=== PATIENT | female | born 1945 | race African-American/Black ===

== ENCOUNTER 2016-09-27 14:47 | Inpatient (IN) | payer MEDICARE, OTHER ==
--- NOTE | ~2016-09-27 | EKG ---
PATIENT: BHAVYA PETE UNIT #: [id number] Ventricular Rate: 75 BPM Atrial Rate: 75 BPM P-R Interval: 198 ms QRS Duration: 64 ms Q-T Interval: 418 ms QTC Calculation(Bezet): 466 ms P [place]: 73 degrees Calculated R [place]: 26 degrees Calculated T [place]: 43 degrees Diagnosis Line: Normal sinus rhythm Diagnosis Line: Normal ECG Diagnosis Line: When compared with ECG of 03-JUL-2015 01:38, Diagnosis Line: Aberrant conduction is no longer Present Diagnosis Line: ST elevation now present in Anterior leads Diagnosis Line: Confirmed by BREANNE LINDQUIST MD ([id number]) on 09/28/2016 Diagnosis Line: 12:05:45 PM INTERPRETING MD: LEXA MINOR
--- NOTE | ~2016-09-27 | CO ---
Unit #: [id number] #: [id number] Patient: BHAVYA SONG [id number] [address] [address] [id number] I MR#: [id number] NAME: BHAVYA SONG ROOM: [facility] Age: 71 Sex: F Admission Date: 09/27/2016 : 1945 Attending Physician: Aurora Daniel M.D. Primary Care Physician: Calvin Deng Jr., M.D. Consultation Date: 09/28/2016 CONSULTATION REPORT REASON FOR CONSULT Acute kidney injury. HISTORY OF PRESENT ILLNESS Ms. Song is a 71-year-old confused -[place] female who was admitted from a skilled nursing for altered mental status. The patient does have a history of stroke and contractures and is on a lot of pain medicines at the skilled nursing as well as seizure medicines. It is not clear what her p.o. status was over the last few days before coming in but she clearly looked dehydrated on admission and her creatinine was elevated to 5.5 prompting our consultation. She has responded very well to IV fluids and has good urine output. She was hypotensive on admission which has improved. Her Losartan and Mobic, which she was on at the skilled nursing, have been discontinued. She is still lethargic and confused and not able to get any history from her. There have been no reports of hematuria or swelling, no reports of rashes. PAST MEDICAL HISTORY 1. History of stroke. 2. History of seizures. 3. History of urinary tract infections. 4. Coronary artery disease. 5. Hypertension. 6. History of small bowel obstruction. 7. Chronic pain syndrome. 8. Valvular heart disease with [id number]-du-xreaem mitral regurgitation. PAST SURGICAL HISTORY 1. Craniotomy. 2. Hysterectomy. MEDICATIONS Her skilled nursing meds were: 1. Morphine 30 mg twice a day. 2. Losartan 100 mg a day. 3. Ativan 1 mg twice a day. 4. Hydrocodone p.r.n. 5. Neurontin 100 mg twice a day. 6. Keppra 500 mg twice a day. 7. Amlodipine 5 mg a day. 8. Baby aspirin daily. 9. Mobic 15 mg a day. 10. MiraLax 17 g daily. 11. Senokot twice a day. Unit #: [id number] #: [id number] Patient: BHAVYA SONG 12. Coreg 12.5 mg twice a day. 13. Latanoprost eye drops. 14. Astepro two puffs daily. 15. Zofran p.r.n. 16. Ativan 0.5 mg every eight hours. 17. Biofreeze to right shoulder as needed. ALLERGIES She has no known drug allergies. FAMILY HISTORY Not known and the patient is not able to give any family history. SOCIAL HISTORY She is a skilled nursing resident and is wheelchair bound. There are no reports of tobacco, alcohol, or drug abuse. REVIEW OF SYSTEMS A complete 12-point review of systems was attempted but simply unable to be obtained secondary to the patient's confusion. She has not had any fevers or chills. Does not appear to be in any pain. Her respiratory status has improved. No hemoptysis. No reports of vomiting or diarrhea. No reports of itching. No gross hematuria. Unless otherwise indicated, review of systems was simply unable to be obtained. PHYSICAL EXAMINATION VITAL SIGNS: Temperature is afebrile. Pulse 109, respiratory rate 17, blood pressure 154/90 (improved from 91/77 on admission). I's and O's are even at this point. GENERAL: This is a 71-year-old -[place] female confused but arousable in no acute distress. HEENT: Head is atraumatic, normocephalic. Eyes show pink conjunctivae with no scleral icterus. No nasal drainage or nosebleed. Oropharynx is dry. NECK: Shows no rigidity, no JVD. HEART: Tachycardic and regular with murmur present. No rub appreciated. LUNGS: Show diminished breath sounds with shallow breaths. No wheezing or rhonchi. Breathing is nonlabored at rest. ABDOMEN: Soft, nontender, nondistended. Bowel sounds are present. EXTREMITIES: No lower extremity cyanosis or pitting edema. SKIN: Dry without rashes. GENITOURINARY: Fernández catheter is in place with nonbloody urine. MUSCULOSKELETAL: No joint effusions noted. She does have a contracture in the right upper extremity. LYMPHATIC: Shows no neck, cervical lymphadenopathy. PSYCHIATRIC: Noteworthy for confusion. DIAGNOSTIC STUDIES LABORATORY: Chemistry this morning: Sodium 135, potassium 4.3, chloride 105, bicarbonate 25, glucose 153, BUN 50, creatinine 2.7. Phosphorous high at 5.7. CK level this morning was 1200. CBC was noteworthy for hemoglobin of 10.9. TSH was normal. Lactic acid level was normal. Urinalysis was unremarkable as well, did have a few white blood cells with granular cast and a culture is pending. Admission creatinine was 5.5. Baseline creatinine prior to this was 0.8 on August 26, 2016. IMAGING: Kidney ultrasound done last night showed a right renal cyst, otherwise normal. Unit #: [id number] #: [id number] Patient: BHAVYA SONG CT scan showed chronic changes with encephalomalacia. Chest x-ray on admission showed no infiltrates. ASSESSMENT AND PLAN 1. Acute kidney injury: This looks to be all prerenal in nature as she is getting better with IV fluids and holding her Losartan and Mobic. We will continue fluids and monitor response. 2. Hypotension: Her blood pressure medications have been held and her blood pressure is doing better. We may need to actually restart her meds going forward if her blood pressure continues to escalate. 3. Chronic pain syndrome with osteoarthritis: No Mobic should be used in this patient with acute kidney injury. 4. Dehydration: On fluids. 5. Mental status changes, questionable baseline. 6. Elevated CPK level: We will continue IV fluids. I would like to thank Dr. Roper for this consult and the opportunity to participate in the evaluation and care of Ms. Song. Dictated by... Neri Dubon Jr., Victoriano. KAILA/hipolito TD: 09/28/2016 11:02 JOB #: [id number] CONSULTATION REPORT X Neri Dubon MD X CONSULTATION REPORT
--- NOTE | ~2016-09-27 | DS ---
Unit #: [id number] #: [id number] Patient: BHAVYA PETE [id number] [address] [address] [id number] I MR#: [id number] NAME: BHAVYA PETE ROOM: 568 Age: 71 Sex: F Admission Date: 09/27/2016 : 1945 Discharge Date: 10/03/2016 Attending Physician: Aurora Daniel M.D. Primary Care Physician: Calvin Deng Jr., M.D. DISCHARGE SUMMARY ADDENDUM Please see aforementioned discharge summary for details of hospital stay. During the time of discharge, the patient had one to two emesis episodes and was unable to tolerate p.o. complaining of some mild abdominal discomfort. Therefore, we had consulted Dr. Brown of gastroenterology services secondary to above. Therefore, he saw and evaluated patient. Patient underwent upper GI endoscopy which did reveal antral ulcer approximately 6 mm as well as gastritis. There was a hiatal hernia noted as well as an esophageal ring. PPI therapy daily dosing was recommended. Pepcid was subsequently discontinued. Nephrology services also reevaluated patient and her Cozaar/losartan was discontinued. Coreg was increased to 25 mg p.o. b.i.d. Hydralazine 10 mg p.o. b.i.d. was added to her overall regimen. Please see above for final discharge medications as well as discharge diagnosis. Please note the following changes: 1. Hydralazine 10 mg p.o. b.i.d. 2. Cozaar to be discontinued. 3. Coreg to be increased to 25 mg p.o. b.i.d. The remainder of her discharge medications are the same as stated above. Dictated by... Nuzhat Garcia/hipolito TD: 10/03/2016 13:12 JOB #: [id number] Unit #: [id number] #: [id number] Patient: BHAVYA PETE DISCHARGE SUMMARY Page 1 of 1 X Aurora Daniel MD X DISCHARGE SUMMARY
--- NOTE | ~2016-09-27 | HP ---
Unit #: [id number] #: [id number] Patient: BHAVYA SONG [id number] [id number] [facility]. [place], [place] [address] [id number] MR#: [id number] NAME: BHAVYA SONG ROOM: Age: 71 Sex: F Admission Date: 09/27/2016 : 1945 Attending Physician: Jerome Lopez M.D. Primary Care Physician: Calvin Deng Jr., M.D. HISTORY AND PHYSICAL CHIEF COMPLAINT Altered mental status. HISTORY OF PRESENT ILLNESS The patient is a 71-year-old female with past medical history of hypertension, cerebrovascular accident, coronary artery disease, seizure disorder, small bowel obstruction, chronic pain who presented to the emergency department from the skilled nursing for evaluation of the above. History is obtained from discussion with ER staff and chart review as well as from the patient's daughter, Rosalba Song, who was at the bedside. The patient is really unable to provide much history due to altered mental status. The patient's daughter states that she seemed somewhat confused last night. She was rather sleepy. This morning, she continued to be lethargic and was difficult to arouse. She was brought to the emergency department for further evaluation. In the emergency department, initial temperature was 99.1, pulse 85, respirations 18, blood pressure 91/77, oxygen saturation was 97% on room air. She was given 0.4 mg of naloxone IV. She was then somewhat more awake for about 30 minutes. Prior to that, a blood gas was done and showed pH 7.231, pCO2 of 62.3, pO2 of 66.8 on 4 L. She was placed on BiPAP. Following naloxone, she became more awake and removed the mask. She is currently on room air. She is opening eyes to voice and answering some yes/no questions. She is following commands. Laboratory is notable for BUN and creatinine of 46 and 5.5 respectively. Her renal function was previously normal. She is being admitted to [facility] for evaluation and further treatment. PAST MEDICAL HISTORY 1. Admission to [facility], July 03 through July 06, 2015, for status epilepticus and E. coli urinary tract infection. 2. 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 3. Coronary artery disease. 4. Hypertension. 5. Seizure disorder, maintained on Keppra. 6. Small bowel obstruction. 7. Chronic pain on narcotics. 8. Echocardiogram, November 22, 2013, was technically limited but showed an ejection fraction of 50% with mild concentric left ventricular hypertrophy, vcvuevkn-pk-quruwo mitral regurgitation, mild tricuspid regurgitation, mild aortic regurgitation. Unit #: [id number] #: [id number] Patient: BHAVYA SONG PAST SURGICAL HISTORY 1. Craniotomy. 2. Hysterectomy. SOCIAL HISTORY The patient is currently at a skilled nursing. She is in a wheelchair. There is no tobacco or alcohol use. CODE STATUS Her code status is a full code. ALLERGIES No known allergies. HOME MEDICATIONS 1. Amlodipine. 2. Losartan. 3. Aspirin. 4. Polyethylene glycol. 5. Hydrocodone. 6. Ativan. 7. Gabapentin. 8. Senna. 9. MS Contin. 10. Keppra. 11. Carvedilol. 12. Latanoprost. 13. Coreg. 14. Astelin. 15. Zofran. 16. Lorazepam. 17. Biofreeze. Home medications will need to be reviewed and verified. REVIEW OF SYSTEMS A complete review of systems is negative except as indicated in the HPI but somewhat limited due to the patient's altered mental status. She denies current chest pain. She is complaining of abdominal pain. She denies any vomiting or diarrhea within the past 24 hours. She does report decreased urine output. She is typically incontinent and wears a brief. DIAGNOSTIC STUDIES LABORATORY: Arterial blood gas shows pH of 7.231, pCO2 of 62.3, pO2 of 66.8 on 4 L. Troponin is less than 0.05. Comprehensive metabolic panel is notable for glucose of 131, BUN and creatinine 46 and 5.5 respectively. Lactic acid is 0.9. Urinalysis notable for trace leukocyte esterase, 5-10 white blood cells, negative for bacteria and nitrite. Complete blood count notable for hemoglobin and hematocrit of 11 and 35.3 respectively. IMAGING: Chest x-ray shows no acute abnormality. CT of the head is pending. CARDIOVASCULAR: EKG shows normal sinus rhythm with rate of 75 beats per minute. PHYSICAL EXAMINATION Unit #: [id number] #: [id number] Patient: BHAVYA SONG VITAL SIGNS: Temperature is 99.2, pulse 85, respirations 18, blood pressure 91/77, oxygen saturation is 97% on room air. GENERAL: The patient is an -[place] female who is somewhat lethargic but opens eyes to physical stimuli. HEENT: The head is atraumatic. Mucous membranes are moist. NECK: Supple. Trachea is midline. CARDIOVASCULAR: Regular rate and rhythm. LUNGS: Clear to auscultation bilaterally with no increased work of breathing. ABDOMEN: Soft, nontender with bowel sounds present in all four quadrants. EXTREMITIES: The right upper extremity is contracted. There is no pedal edema. NEUROLOGIC: The patient is oriented to person and place. She follows commands. PSYCHIATRIC: The patient is cooperative. SKIN: Skin of examined areas is warm and dry. ASSESSMENT The patient is a 71-year-old female: 1. Altered mental status: The patient has had some response to Narcan. 2. Acute respiratory failure, hypoxic and hypercapnic. 3. Acute kidney injury: The patient's creatinine was 0.8 on August 26, 2016. It is 5.5 today. She is on Losartan which could be contributing. She has had decreased appetite but the patient's daughter states that is not a new problem. 4. Hypertension: The patient's blood pressure has actually been running low in the emergency department at 91/77. 5. History of cerebrovascular accident with residual right-sided weakness. 6. Coronary artery disease. 7. History of seizures, maintained on Keppra. 8. History of small bowel obstruction. 9. Chronic pain, maintained on narcotics. PLAN 1. Admit to intermediate level. 2. NPO until more awake. 3. TSH, B12, and folate. 4. Neuro checks. 5. Check ABG now. 6. Consult Dr. Lind regarding acute respiratory failure. 7. DuoNeb q.4 hours p.r.n. 8. Urine sodium, creatinine, eosinophils. 9. Renal ultrasound. 10. Strict ins and outs. 11. Check CPK. 12. Normal saline at 75 mL an hour. 13. Consult Dr. Dubon regarding acute kidney injury. 14. Serial cardiac enzymes. 15. Followup results of head CT. 16. Sequential compression devices for deep venous thrombosis prophylaxis. 17. Protonix for gastrointestinal prophylaxis. 18. Repeat labs in the morning. 19. Additional workup and consultants based on above. Unit #: [id number] #: [id number] Patient: BHAVYA SONG Dictated by Nuzhat Cline/hipolito TD: 09/27/2016 16:54 JOB #: [id number] HISTORY AND PHYSICAL X Martina Roper MD X HISTORY AND PHYSICAL
--- NOTE | ~2016-09-27 | CO ---
Unit #: [id number] #: [id number] Patient: BHAVYA PETE [id number] [address] [address] [id number] I MR#: [id number] NAME: BHAVYA PETE ROOM: [facility] Age: 71 Sex: F Admission Date: 09/27/2016 : 1945 Attending Physician: Martina Roper M.D. Primary Care Physician: Calvin Deng Jr., M.D. CONSULTATION REPORT REASON FOR CONSULTATION Critical care management. CHIEF COMPLAINT Altered mental status. HISTORY 71-year-old female with a past medical history of hypertension, CVA, coronary artery disease, seizure disorder, small bowel obstruction, chronic pain, presents to the emergency room from the [facility] for evaluation of altered mental status and has been admitted for altered mental status, acute respiratory failure and acute renal failure. I am seeing the patient at bedside, able to tell her name, comfortable. O2 sats 99% on room air. Does not know where she is, does not look in any distress. PAST MEDICAL HISTORY Significant for: 1. UTI. 2. Stroke. 3. Coronary artery disease. 4. Hypertension. 5. Seizure disorder. 6. Small bowel obstruction. 7. Chronic pain, on [place]. 8. EF of 50%. 9. Craniotomy. 10. Hysterectomy. SOCIAL HISTORY Nonsmoker. No alcohol, no drug abuse. ALLERGIES No known drug allergies. MEDICATIONS 1. Amlodipine. 2. Losartan. 3. Aspirin. 4. Polyethylene glycol. 5. Hydrocodone. 6. Ativan. 7. Gabapentin. 8. Senna. Unit #: [id number] #: [id number] Patient: BHAVYA PETE 9. MS-Contin. 10. Keppra. 11. Carvedilol. 12. Latanoprost. 13. Coreg. 14. Astelin. 15. Zofran. 16. Lorazepam. 17. Biofreeze. PHYSICAL EXAMINATION VITAL SIGNS: Temperature 98, pulse 87, respirations 12, blood pressure 110/70. NEUROLOGICAL: Awake but does not follow much commands. Comfortable. Knows her name and tells her name but does not know where she is. CVS: S1+ S2. RESPIRATIONS: Bilateral air entry, bilateral mild rhonchi. GI: Nontender, soft. Bowel sounds positive. EXTREMITIES: No edema. Upper extremity contracted. DIAGNOSTIC STUDIES Labs and imaging have been reviewed. ASSESSMENT AND PLAN 1. Acute hypercapnic respiratory failure. 2. Altered mental status. 3. Acute renal failure. 4. Respiratory acidosis. 5. Dehydration. At this point, plan is to admit the patient. Continue oxygen, bronchodilator. The patient cannot tolerate BiPAP because of her history of stroke and continuous altered mental status. Will continue aggressive IV hydration. GI/DVT prophylaxis. Continue to monitor very closely. Will continue oxygen, bronchodilator. She may need intubation. Will watch very closely. Please see orders for detailed plan. Thank you very much for this consultation. We will continue to follow. Will start patient on empiric antibiotics as well. Total critical care time is 65 minutes in direct critical care of this patient. Dictated by... Nuzhat Henry/jesse TD: 09/28/2016 06:45 JOB #: [id number] Unit #: [id number] #: [id number] Patient: BHAVYA PETE VALORIE CONSULTATION REPORT X Farooq Lind MD X CONSULTATION REPORT
--- NOTE | ~2016-09-27 | CT71 ---
[facility] A Service of [facility] RADIOLOGY TEXT RESULTS PATIENT: BHAVYA PETE VALORIE LOCATION: [facility] 568-01 : [birth year] UNIT #: [id number] AGE: [address]: Aurora Daniel MD SEX: F ORDER DR: [id number] [facility] [address] [facility]. [place], [place] [address] [id number] I MR#: [id number] Acc #: [id number] NAME: BHAVYA PETE : 1945 SEX: F STUDY DATE/TIME: 09/27/2016 16:00 UNIT: [facility] ROOM: [facility] STUDY DESCRIPTION: CT Head Wo Contrast Attending Physician: Martina Roper M.D. Ordering Physician: Jerome Lopez M.D. Primary Care Physician: Calvin Deng Jr., M.D. MEDICAL IMAGING REPORT This report is preliminary unless electronic signature is present EXAM CT brain without contrast media HISTORY Confusion beginning this morning. TECHNIQUE Transaxial imaging of the brain was performed without contrast and compared directly to the patient's most recent examination of 07/03/2015. This CT examination was performed with one or more of the following radiation dose reduction techniques: automatic exposure control, adjustment of mA and/or kV according to patient size, and iterative reconstruction. FINDINGS There is motion degradation artifact. There is an area of encephalomalacia in the left frontoparietal region immediately deep to a prior craniotomy defect in the left frontoparietal region. The appearance has not changed. There is ipsilateral compensatory dilatation of the left lateral ventricle. The right lateral ventricle is normal. No mass lesions, mass effect, evidence of acute hemorrhage or edema. There is atherosclerotic disease in both vertebral arteries, the basilar artery and throughout the carotid siphons. CONCLUSION 1. Postsurgical changes left frontoparietal craniotomy. 2. Encephalomalacia in the left frontoparietal cortex and white matter, stable, with compensatory dilatation of the left lateral ventricle. 3. Advanced atherosclerotic disease. 4. No acute findings. [facility] A Service of [facility] RADIOLOGY TEXT RESULTS PATIENT: BHAVYA PETE LOCATION: [facility] 568-01 : [birth year] UNIT #: [id number] AGE: [address]: Aurora Daniel MD SEX: F ORDER DR: Dictated by... Antony Vasques M.D. THIS IS AN ELECTRONICALLY VERIFIED REPORT Antony Vasques M.D. at 10/01/2016 5:09 PM PAULA/winifred TD: 09/28/2016 06:03 JOB #: [id number] MEDICAL IMAGING REPORT Page 1 of 1 COPY
--- NOTE | ~2016-09-27 | A ---
[facility] Nutrition Therapy DATE: 09/28/16 Patient: BHAVYA PETE Physician: AIDA Address: [facility] Room/Bed: [address], Zip: [place] [address] Admit Date: 09/27/16 Date of : [birth year] Height: 5 4 Weight: 210 95.5 NUTRITIONAL ASSESSMENT: REASON: NPO status 71 yo female admitted for altered mental status, acute respiratory failure, JUVENAL PMH: CVA (R side weakness), HTN, CAD, seizure disorder, small bowel obstruction, JUVENAL, EF of 50% Anthropometrics: HT: 5'6" WT: 95.5 kg (210#) BMI: 34.0 Labs: Glu 153, BUN 50, Creat 2.7, Mg++ 3.5, Phos 5.7, GFR 22.5 Meds: Protonix IV, NaCl I/O & Bowel function: 706/700 Skin Integrity: excoriation (R buttock), scars (abd, knee), redness/bruise (L forearm) Estimated Nutrition Needs: 1430 - 1910 kcal (15-20 kcal/kg) 89 - 118 grams protein (1.5-2.0 g/kg IBW) Assessment: Chart reviewed, events noted. When admitted, pt had c/o abdominal pain. Per [employer], pt has no recent wt change. Per chart, pt eats a regular diet at the senior care she stays at. JUVENAL noted, pt has no history of chronic kidney disease. Please see recomendations below. Dx: Inadequate protein-energy intake RT current clinical condition AEB NPO status. Intervention: 1. Enteral nutrition if diet does not advance 2. CONTINUOUS IMPROVEMENT FACILITATOR Monitoring, Evaluation and Goals: 1. Nutrition; provide and consume ~80-100% of estimated needs 2. Labs; WNL: Gluc, BUN, Creat, Mg++, Phos 3. Weight; prevent unintentional weight loss 4. Skin; promote skin healing Recommendations: 1. Recommend CONTINUOUS IMPROVEMENT FACILITATOR evaluation to determine if pt can safely tolerate PO intake. 2. If advance to PO diet recommend heart healthy diet. 3. If pt unable to take nutrition PO, recommend initiating enteral nutrition with Jevity 1.5 @ 20 mL/hr + 30 mL Prostat BID. Increase by 10 mL q 8 hrs as tolerated to goal of 40 [facility] Nutrition Therapy DATE: 09/28/16 Patient: BHAVYA VALORIE PETE Physician: AIDA Address: [facility] Room/Bed: [address], Zip: [place] [address] Admit Date: 09/27/16 Date of : [birth year] Height: 5 4 Weight: 210 95.5 mL/hr + 30 mL Prostat BID. This will provide: 1640 kcal/91 grams protein/730 mL free H2O. 4. Consider GI consult if appropriate, pt admitted with abdominal pain. Pt is at moderate nutritional risk. RD will f/u per protocol. Respectfully, BOB SILVA, Md Allergy Immunology Adri Jacinto RD, LD Food and Nutritional Services [facility] cc: client file
--- NOTE | ~2016-09-27 | FU ---
[facility] Nutrition Therapy DATE: 10/02/16 Patient: BHAVYA PETE Physician: AIDA Address: NARENDRA [facility] Room/Bed: [address] [place] [address], Zip: [place] [address] Admit Date: 09/27/16 Date of : [birth year] Height: 5 4 Weight: 207 94 NUTRITION MONITORING/FOLLOW-UP: Reason: Nutrition follow-up 71 y/o female admitted for AMS, acute resp. failure, JUVENAL Anthropometrics: Ht: 5'6" Adm Wt: 95.5 kg BMI: 34 IBW: 59 kg Current wt: 94 kg Labs: K+ 3.4, Gluc 116, Mg++ 3.5, Phos 5.7, Lip 15 Meds: protonix, zofran I&O's: 595/1450, last BM 10/01 Skin: blisters (L wrist), contracture (R hand/wrist), no edema noted Estimated Nutrition Needs: 6424-3780 kcal (15-20 kcal/kg) 89-118 g protein (1.5-2 g/ kg IBW) Assessment: Chart reviewed, events noted. Pt is on a mechanical ground diet, which pt is not tolerating well. Pt's discharge cancelled d/t pt vomiting. EGD revealed hiatal hernia, gastric erosion, gastric ulcer and gastritis. GI recommended mechanical soft diet. Pt reports N/V and poor appetite. Pt consumed ~30-40% of lunch, per observation. Pt agreed to Ensure. Pt had no questions at this time. See recommendations below. Dx: Inadequate protein-energy intake RT current clinical condition AEB N/V, consumption of 30-40% of meal. -ACTIVE Intervention: 1. Ensure BID Monitoring, Evaluation and Goals: 1. PO intake; consume and tolerate >50% of meals and supplements 2. Labs; WNL: gluc, electrolytes 3. GI; promote regular GI function 4. Weight; prevent unintentional weight loss Recommendations: 1. Ensure BID with meals 2. Once medically feasible, advance diet to healthy heart as tolerated. [facility] Nutrition Therapy DATE: 10/02/16 Patient: BHAVYA PETE Physician: AIDA Address: N[facility]ENDRA [facility] Room/Bed: [address] [place] [address], Zip: [place] [address] Admit Date: 09/27/16 Date of : [birth year] Height: 5 4 Weight: 207 94 3. If pt continues with n/v, may consider low fiber diet. Status: Pt is at a mild-moderate nutrition risk RD will f/u per protocol. Respectfully, Randa León, Spud Sorter Adri Jacinto RD, LD Food and Nutritional Services [facility] cc: client file
--- NOTE | ~2016-09-27 | OR ---
Unit #: [id number] #: [id number] Patient: BHAVYA PETE [id number] [address] [address] [id number] I MR#: [id number] NAME: BHAVYA PETE ROOM: 568 Date of Procedure: 10/02/2016 Admission Date: 09/27/2016 Surgeon: Randal Brown M.D. : 1945 Attending Physician: Aurora Daniel M.D. Primary Care Physician: Calvin Deng Jr., M.D. OPERATIVE REPORT INDICATIONS FOR PROCEDURE Esophagogastroduodenoscopy with biopsies. INDICATIONS FOR PROCEDURE The patient with persistent nausea, vomiting, atypical chest pain. MEDICATIONS Monitored anesthesia. POSTOPERATIVE FINDINGS 1. Multiple mucosa, esophageal rings nonobstructing. 2. Hiatal hernia. 3. Diffuse gastritis. 4. 6 mm ulcer in the gastric antrum clean based. Biopsy was taken in an antral and body mucosa. 5. Normal duodenum and distal duodenum. PLAN PPI therapy. Diet discussed. Treat for H pylori if positive. DESCRIPTION OF PROCEDURE The patient was explained of the procedure, risks, and benefits along with risks and benefits of anesthesia. She was brought to the endoscopy room. Propofol anesthesia was given. Bite block was placed. The scope was passed down the mouth into the esophagus, stomach, duodenum, and distal duodenum. Findings as described. Biopsies taken. Gently, I pulled the scope out of the patient's mouth. She tolerated it well. Dictated by... Nuzhat Guardado/dakotah TD: 10/02/2016 22:18 JOB #: [id number] Unit #: [id number] #: [id number] Patient: BHAVYA PETE OPERATIVE REPORT Page 1 of 1 X Randal Brown MD X PROCEDURE OPERATIVE NOTE
--- NOTE | ~2016-09-27 | CR72 ---
[facility] A Service of [facility] & [facility] RADIOLOGY TEXT RESULTS PATIENT: BHAVYA PETE LOCATION: [address]16 : [birth year] UNIT #: [id number] AGE: [address]: Aurora Daniel MD SEX: F ORDER DR: [id number] [facility] [address] [place], [place] [address] [id number] MR#: [id number] Acc #: [id number] NAME: BHAVYA PETE : 1945 SEX: F STUDY DATE/TIME: 09/27/2016 13:40 UNIT: JEAN ROOM: STUDY DESCRIPTION: CR Chest Single View Portable Attending Physician: Jerome Lopez M.D. Ordering Physician: Jerome Lopez M.D. Primary Care Physician: Calvin Deng Jr., M.D. MEDICAL IMAGING REPORT This report is preliminary unless electronic signature is present EXAM Portable chest 1 view 09/27/2016 COMPARISON 04/03/2015 HISTORY Short of air today. FINDINGS Redemonstrated low lung volumes and borderline to mild cardiomegaly. No consolidation or effusion or pneumothorax. Dictated by... Marco Frazier M.D. THIS IS AN ELECTRONICALLY VERIFIED REPORT Marco Frazier M.D. at 09/28/2016 4:12 PM TEV/marvinr TD: 09/27/2016 19:19 JOB #: [id number] MEDICAL IMAGING REPORT COPY
--- NOTE | ~2016-09-27 | CO ---
Unit #: [id number] #: [id number] Patient: BHAVYA SONG [id number] [address] [place], [place] [address] [id number] I MR#: [id number] NAME: BHAVYA SONG ROOM: 568 Age: 71 Sex: F Admission Date: 09/27/2016 : 1945 Attending Physician: Aurora Daniel M.D. Primary Care Physician: Calvin Deng Jr., M.D. Consultation Date: 10/01/2016 CONSULTATION REPORT REASON FOR CONSULTATION Persistent nausea and vomiting. HISTORY OF PRESENTING ILLNESS Ms. Song is a 71-year-old female, she was transferred from long term for altered mental status, which appears to be secondary to medications. She has been having vomiting after the eating for last several days. Per daughter, she has been moved out of the long term for several months. She also has been complaining of atypical lower sternal pain, which is worse after food. The patient denies any hematemesis or melena. Denies any abdominal pain. Denies any change in bowel movements. PAST MEDICAL HISTORY Significant for history of seizure disorder, cerebrovascular accident, coronary artery disease, hypertension. She also has history of small bowel obstruction. SOCIAL HISTORY half-way resident. Nonsmoker. Nonalcoholic. ALLERGIES None. MEDICATIONS Included amlodipine, aspirin, hydrocodone, Ativan, gabapentin, Senna, MS Contin, Carvedilol, and lorazepam. REVIEW OF SYSTEMS Complete review of systems obtained and is negative other than as mentioned above. PHYSICAL EXAMINATION VITAL SIGNS: Stable. Afebrile. CHEST: Clear to auscultation bilaterally. CARDIOVASCULAR: Regular rate and rhythm. No murmurs. ABDOMEN: Soft, nontender, and nondistended. EXTREMITIES: Without clubbing, cyanosis, or edema. NEUROLOGIC: Grossly intact. Exam was deferred. She has contractures in the right side. DIAGNOSTIC STUDIES LABORATORY RESULTS: Chemistries show normal BUN, normal creatinine, now she came with a high BUN of 50. Creatinine on arrival was 2.7 also and Unit #: [id number] #: [id number] Patient: BHAVYA SONG has come down to 0.7. LFTs are normal. Amylase and lipase were reported normal. CBC with a hemoglobin of 11.4, white count of 12.2, and platelet count 325. IMAGING STUDIES: CT of head was done on arrival did show postsurgical changes from frontoparietal craniotomy and encephalomalacia. No acute changes were seen. ASSESSMENT AND PLAN The patient with recurrent nausea and vomiting, as well as atypical chest pain, possible esophagitis could be infectious versus acid reflux related ulceration and peptic ulcer disease also, possibly we will continue with current medication. Plan on doing an upper endoscopy for further evaluation. Speech evaluation was noted, apparently no defect. Thank you, Dr. Daniel for this interesting consult. We will follow along. Dictated by... Nuzhat Guardado/dakotah TD: 10/01/2016 23:36 JOB #: [id number] CONSULTATION REPORT Page 1 of 1 X Randal Brown MD X CONSULTATION REPORT
--- NOTE | ~2016-09-27 | CR72 ---
[facility] A Service of [facility] & [facility] RADIOLOGY TEXT RESULTS PATIENT: BHAVYA PETE LOCATION: [facility] 568-01 : [birth year] UNIT #: [id number] AGE: [address]: Aurora Daniel MD SEX: F ORDER DR: [id number] [facility] [address] [place], [place] [address] [id number] I MR#: [id number] Acc #: [id number] NAME: BHAVYA PETE : 1945 SEX: F STUDY DATE/TIME: 09/29/2016 3:40 UNIT: [facility] ROOM: [facility] STUDY DESCRIPTION: CR Chest Single View Portable Attending Physician: Aurora Daniel M.D. Ordering Physician: Aurora Daniel M.D. Primary Care Physician: Calvin Deng Jr., M.D. MEDICAL IMAGING REPORT This report is preliminary unless electronic signature is present EXAM AP portable chest 09/29/2016. HISTORY 71-year-old female with respiratory failure, shortness of air. Acute mental status changes. TECHNIQUE AP portable chest x-ray. FINDINGS Examination shows no change since yesterday. Mild cardiomegaly stable. Prominent and tortuous thoracic aorta. The lungs appear clear. No visible pulmonary infiltrate or pleural effusion. IMPRESSION Stable portable chest radiograph, unchanged since yesterday. Dictated by... Ankur Campos M.D. THIS IS AN ELECTRONICALLY VERIFIED REPORT Ankur Campos M.D. at 09/30/2016 5:30 AM RONALD/margaret TD: 09/30/2016 02:36 JOB #: [id number] MEDICAL IMAGING REPORT COPY
--- NOTE | ~2016-09-27 | CR72 ---
[facility] A Service of [facility] & [facility] RADIOLOGY TEXT RESULTS PATIENT: BHAVYA PETE LOCATION: [facility] 568[facility] : [birth year] UNIT #: [id number] AGE: [address]: Aurora Daniel MD SEX: F ORDER DR: [id number] [facility] [address] [place], [place] [address] [id number] I MR#: [id number] Acc #: [id number] NAME: BHAVYA PETE : 1945 SEX: F STUDY DATE/TIME: 09/28/2016 5:23 UNIT: [facility] ROOM: [facility] STUDY DESCRIPTION: CR Chest Single View Portable Attending Physician: Aurora Daniel M.D. Ordering Physician: Martina Roper M.D. Primary Care Physician: Calvin Deng Jr., M.D. MEDICAL IMAGING REPORT This report is preliminary unless electronic signature is present EXAM AP portable chest, 09/28/2016 at 05:23. HISTORY Acute mental status changes, respiratory failure. Short of breath for 2 days. COMPARISON STUDIES AP portable chest, 09/27/2016. FINDINGS Low volume inspiration. No acute airspace disease. Stable mild cardiac enlargement. Stable thoracic ectasia. IMPRESSION Stable cardiomegaly and thoracic aortic ectasia. No acute chest findings or significant change, compared to 09/27/2016. Dictated by... Rupal Bolanos M.D. THIS IS AN ELECTRONICALLY VERIFIED REPORT Rupla Bolanos M.D. at 10/02/2016 8:38 AM STACI/teo TD: 09/28/2016 11:06 JOB #: [id number] MEDICAL IMAGING REPORT Page 1 of 1 COPY
--- NOTE | ~2016-09-27 | DS ---
Unit #: [id number] #: [id number] Patient: BHAVYA EPTE [id number] [address] [place], [place] [address] [id number] I MR#: [id number] NAME: BHAVYA PETE ROOM: 568 Age: 71 Sex: F Admission Date: 09/27/2016 : 1945 Discharge Date: 10/01/2016 Attending Physician: Aurora Daniel M.D. Primary Care Physician: Calvin Deng Jr., M.D. DISCHARGE SUMMARY REASON FOR ADMISSION Altered mental status. HISTORY OF PRESENT ILLNESS/HOSPITAL COURSE The patient is a 71-year-old female with underlying history of hypertension, CVA, coronary artery disease, seizure disorder, small bowel obstruction, chronic pain syndrome who presented secondary to mental status change. Apparently, she has been living in a custodial for approximately 12 months. When she was seen and evaluated, she was quite somnolent. History was not able to be elicited after discussion with her. Therefore, discussion was made with the patient's daughter. She had initial arterial blood gases which showed a pH of 7.231, pCO2 of 62, pO2 of 66 on 4 L. She was subsequently placed on BiPAP, transitioned into the ICU. She received Narcan x1. She became more alert and was able to respond to some yes or no questions. During her ICU course, she was gradually weaned off BiPAP, placed on O2 via nasal cannula, returned back to baseline. Dr. Lind of pulmonary services was subsequently consulted for the same. From a respiratory standpoint, she was placed on Zosyn prophylactically for consideration of possible aspiration pneumonia. Her blood cultures did not show any acute bacterial growth during the time that she was here, neither did her urine culture. Today, her white count is decreased to 12.2. She appears stable from a respiratory standpoint for discharge. Initially while she was evaluated as well, it was noted that her creatinine was 5.5 with a GFR of 9.9. She received copious IV fluids through her hospital course. Her NSAIDs were also discontinued. Today at time of discharge, her creatinine now stands at 0.7. She did have elevated CK level with consideration for acute rhabdomyolysis. Today at time of discharge, her CK currently stands at 662 and has been trending downwards for the past three days. We did consult [facility]. Dr. Dubon saw and evaluated the patient during the time that she was here. We have held her morphine throughout her hospital course. She has exhibited no evidence of any withdrawal signs. She has not requested a significant amount of pain medications during the time that she was here. In fact, we transitioned her Deweese from q.4 to q.8 p.r.n. She only Unit #: [id number] #: [id number] Patient: BHAVYA PETE requested on a few occasions. Therefore, at time of discharge, her morphine will be discontinued altogether as this seems likely an etiology for her mental status change as well as respiratory compromise. Her Deweese 5/325 will be left at one tablet p.o. q.8 p.r.n. only. Her Ativan was also decreased to 0.5 p.o. q.8 p.r.n. She requested this only a few occasions. Her 1 mg p.o. b.i.d. was discontinued altogether. She was also initiated on Cymbalta as well as Remeron. Daughter states that she has had an overall decreased appetite over the past several days to weeks and in fact, has had decreased p.o. intake altogether over the past one year. The patient should have a repeat BMP in approximately three to five days post discharge while at the custodial. FINAL DISCHARGE DIAGNOSES 1. Acute hypoxic respiratory failure, likely secondary to narcotic/opioid medications. 2. Prior history of seizure disorder. 3. 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 4. Acute kidney injury, now resolved. 5. Coronary artery disease. 6. Hypertension. 7. Chronic pain syndrome. 8. Generalized anxiety disorder. 9. Polypharmacy on admission. 10. Acute rhabdomyolysis, now resolving. FINAL DISCHARGE MEDICATIONS 1. Keppra 500 mg p.o. b.i.d. 2. Cymbalta 30 mg p.o. daily. 3. Remeron 15 mg p.o. nightly. 4. Zofran 8 mg p.o. q.8 p.r.n. 5. Ativan 0.5 mg p.o. q.8 p.r.n. 6. Coreg 12.5 mg p.o. b.i.d. 7. Norvasc 5 mg p.o. b.i.d. 8. Xalatan eye drops at bedtime. 9. Cozaar 100 mg p.o. daily. 10. Pepcid 20 mg p.o. b.i.d. 11. Aspirin 81 mg p.o. daily. 12. Deweese 5/325 one tablet p.o. q.8 p.r.n. 13. Augmentin 875 mg p.o. b.i.d. x7 days. 14. Vitamin B12 at 1000 mcg IM q. week. DIAGNOSTIC STUDIES LABORATORY: Discharge laboratory studies include the following: Hemoglobin 11.4, white count 12.2, creatinine 0.7. CK level 662. TSH within normal range. Urine culture negative. Blood culture negative. Vitamin B12 level 181. DISCHARGE DISPOSITION To custodial. Dictated by... Aurora Daniel M.D. Unit #: [id number] #: [id number] Patient: BHAVYA PETE VALORIE LYNCH/hipolito TD: 10/01/2016 09:59 JOB #: [id number] DISCHARGE SUMMARY X Aurora Daniel MD X DISCHARGE SUMMARY
--- NOTE | ~2016-09-27 | US77 ---
[facility] A Service of [facility] & [facility] RADIOLOGY TEXT RESULTS PATIENT: BHAVYA PETE LOCATION: [facility] 568-01 : [birth year] UNIT #: [id number] AGE: [address]: Aurora Daniel MD SEX: F ORDER DR: [id number] [facility] [address] [place], [place] [address] [id number] MR#: [id number] Acc #: [id number] NAME: BHAVYA PETE : 1945 SEX: F STUDY DATE/TIME: 09/27/2016 17:49 UNIT: [facility] ROOM: [facility] STUDY DESCRIPTION: US Kidney Bilateral Complete Attending Physician: Martina Roper M.D. Ordering Physician: Jerome Lopez M.D. Primary Care Physician: Calvin Deng Jr., M.D. MEDICAL IMAGING REPORT This report is preliminary unless electronic signature is present EXAM Renal ultrasound HISTORY Flank pain for 1 year. Renal failure. FINDINGS Longitudinal and transverse sonograms of the kidneys are obtained. The right kidney measures 10.5 cm with a simple cyst in the upper pole measuring up to 3.8 cm in diameter. The left kidney measures 10.2 cm in length and appears normal. The bladder is unremarkable. CONCLUSION 1. Normal renal size and echogenicity. 2. No evidence of hydronephrosis or obstruction. 3. 3.8 cm right renal cyst. Dictated by... Antony Vasques M.D. THIS IS AN ELECTRONICALLY VERIFIED REPORT Antony Vasques M.D. at 10/01/2016 5:10 PM PAULA/winifred TD: 09/28/2016 08:01 JOB #: [id number] MEDICAL IMAGING REPORT Page 1 of 1 COPY
[2016-09-27 13:31] LABS: ARTERIAL BLD GAS O2 SATURATION 87.8 % (90.0-100.0); ARTERIAL BLOOD GAS ALLEN TEST NORMAL; ARTERIAL BLOOD GAS ART SITE LEFT RADIAL; ARTERIAL BLOOD GAS CARBOXY HB 0.7 %sat (0.0-9.0); ARTERIAL BLOOD GAS HCO3 26.1 mmol/L; ARTERIAL BLOOD GAS MET HB 0.8 %sat (0.0-2.0); ARTERIAL BLOOD GAS PCO2 62.3 mmHg (35.0-45.0); ARTERIAL BLOOD GAS PO2 66.8 mmHg (80.0-100); ARTERIAL BLOOD GAS pH 7.231 (7.350-7.450); ARTERIAL DRAW? YES
[2016-09-27 13:32] LABS: ARTERIAL BLOOD GAS DELIVERY NASAL CANNULA
[2016-09-27 14:29] LABS: URINE SOURCE CLEAN CATCH
[2016-09-27 14:39] LABS: POC - CKMB 4.2 ng/mL (0.0-7.9); POC - TROPONIN <0.05 ng/mL (<=0.05)
[2016-09-27 14:47] LABS: URINE APPEARANCE CLOUDY; URINE BLOOD NEG (NEG); URINE COLOR DK YELLOW; URINE GLUCOSE NEG (NEG); URINE KETONE TRACE (NEG); URINE LEUKOCYTE ESTERASE TRACE (NEG); URINE NITRATE NEG (NEG); URINE PROTEIN NEG (NEG); URINE SPECIFIC GRAVITY 1.031 (1.003-1.035); URINE UROBILINOGEN 0.2 MG/DL (NEG)
[~2016-09-27 14:47] MED LIST: AMLODIPINE BESYL5 MG PO; ARTHRITIS PAIN650 M2 PO; BACLOFEN10 MG PO; COREG12.5 MG PO; HYDROCODON-ACE1 EAC7 PO; KEPPRA250 MG PO; LORAZEPAM1 MG PO; LOSARTAN POTAS100 MG PO; MOBIC15 MG PO; MORPHINE SULFAT30 M3 PO; NEURONTIN100 MG PO; PRILOSEC40 MG PO; REMERON15 MG PO; SERTRALINE HCL100 MG PO
[2016-09-27 14:51] LABS: CULTURE INDICATED? YES; URINE BACTERIA AUWI NEG (NEGATIVE); URINE SQUAMOUS EPITHELIAL CELL FEW /[HPF]
[2016-09-27 14:55] LABS: ALBUMIN SERUM 3.9 g/dL (3.5-5.0); BILIRUBIN, DIRECT 0.1 mg/dL (0.0-0.2); BILIRUBIN,INDIRECT 0.4 mg/dL (0.0-0.9); BILIRUBIN,TOTAL 0.5 mg/dL (0.2-2.0); BUN/CREATININE RATIO 8.36; CALCIUM SERUM 8.5 mg/dL (8.4-10.2); CREATININE SERUM 5.5 mg/dL (0.6-1.4); GLOM FILT RATE Estimated 9.9 mL/min (>60); POTASSIUM 5.1 mmol/L (3.5-5.1); PROTEIN TOTAL SERUM 7.2 g/dL (6.0-8.3)
[2016-09-27 14:58] LABS: BASOPHIL# 0.1 X10e3 (0-0.3); BASOPHIL% 0.6 % (0-2.5); EOSINOPHIL# 0.2 X10e3 (0-0.7); EOSINOPHIL% 1.9 % (0.0-7.0); HEMATOCRIT 35.3 % (35.0-45.0); LYMPHOCYTE# 1.9 X10e3 (1.0-3.5); LYMPHOCYTE% 19.2 % (17.0-45.0); MEAN CELL VOLUME 83.6 FL (83-96); MEAN PLATELET VOLUME 8.5 FL (6.5-11.5); MONOCYTE# 0.6 X10e3 (0-1.0); MONOCYTE% 5.8 % (3.0-12.0); NEUTROPHIL# 7.3 X10e3 (1.5-7.1); NEUTROPHIL% 72.5 % (40-75); PLATELET COUNT 328 X10e3 (140-420); RED BLOOD COUNT 4.22 X10e (3.90-5.30); RED CELL DISTRIBUTION WIDTH 14.8 % (11.0-15.5)
[2016-09-27 15:00] LABS: URINE BILIRUBIN NEG (NEG)
[2016-09-27 15:01] LABS: DIFF IND YES
[2016-09-27 15:12] LABS: U HYALINE CASTS AUWI 0-2 /[LPF]; URINE CRYSTALS CALCIUM OXALATE /[HPF]; URINE GRANULAR CAST 0-2 /[HPF]
[2016-09-27 15:28] LABS: URBCS1 AUWI 0-2 /[HPF] (0-2)
[2016-09-27 15:32] LABS: PLATELET ESTIMATE NORMAL (NORMAL); RBC NORMAL YES
[2016-09-27 17:20] LABS: ARTERIAL BLD GAS O2 SATURATION 83.8 % (90.0-100.0); ARTERIAL BLOOD GAS ALLEN TEST NORMAL; ARTERIAL BLOOD GAS CARBOXY HB 0.6 %sat (0.0-9.0); ARTERIAL BLOOD GAS HCO3 25.3 mmol/L; ARTERIAL BLOOD GAS MET HB 0.8 %sat (0.0-2.0); ARTERIAL BLOOD GAS PCO2 54.6 mmHg (35.0-45.0); ARTERIAL BLOOD GAS PO2 55.5 mmHg (80.0-100); ARTERIAL BLOOD GAS pH 7.275 (7.350-7.450); ARTERIAL DRAW? YES
[2016-09-27 17:21] LABS: ARTERIAL BLOOD GAS ART SITE LEFT RADIAL
[2016-09-27 18:37] LABS: MAGNESIUM 3.5 mg/dL (1.6-3.0)
[2016-09-27 18:38] LABS: PHOSPHOROUS 9.5 mg/dL (2.5-4.6)
[2016-09-27 19:02] LABS: FOLATE (FOLIC ACID) 14.1 ng/mL (>5.8)
[2016-09-27 21:05] LABS: ARTERIAL BLD GAS O2 SATURATION 87.4 % (90.0-100.0); ARTERIAL BLOOD GAS CARBOXY HB 0.7 %sat (0.0-9.0); ARTERIAL BLOOD GAS HCO3 25.5 mmol/L; ARTERIAL BLOOD GAS MET HB 0.8 %sat (0.0-2.0); ARTERIAL BLOOD GAS pH 7.292 (7.350-7.450)
[2016-09-27 21:06] LABS: ARTERIAL BLOOD GAS ALLEN TEST NORMAL; ARTERIAL BLOOD GAS ART SITE LEFT RADIAL; ARTERIAL BLOOD GAS PCO2 52.8 mmHg (35.0-45.0); ARTERIAL DRAW? YES
[2016-09-27 21:11] LABS: %MB 0.8 % (0.0-4.0)
[2016-09-28 02:28] LABS: BASOPHIL# 0.1 X10e3 (0-0.3); BASOPHIL% 0.8 % (0-2.5); EOSINOPHIL# 0.2 X10e3 (0-0.7); HEMATOCRIT 35.3 % (35.0-45.0); HEMOGLOBIN 10.9 gm/dL (12.0-16.0); LYMPHOCYTE# 1.9 X10e3 (1.0-3.5); LYMPHOCYTE% 18.5 % (17.0-45.0); MEAN CELL VOLUME 83.4 FL (83-96); MEAN CORPUSCULAR HEMOGLOBIN 25.7 PG (28-34); MEAN CORPUSCULAR HGB CONC 30.8 g/dL (30-36); MEAN PLATELET VOLUME 8.2 FL (6.5-11.5); MONOCYTE# 0.7 X10e3 (0-1.0); MONOCYTE% 6.9 % (3.0-12.0); NEUTROPHIL# 7.4 X10e3 (1.5-7.1); NEUTROPHIL% 71.8 % (40-75); PLATELET COUNT 315 X10e3 (140-420); RED BLOOD COUNT 4.23 X10e (3.90-5.30); RED CELL DISTRIBUTION WIDTH 14.4 % (11.0-15.5); WHITE BLOOD COUNT 10.3 X10e3 (4.0-10.5)
[2016-09-28 02:29] LABS: DIFF IND NO
[2016-09-28 03:04] LABS: %MB 0.9 % (0.0-4.0); MB 10.3 ng/ml
[2016-09-28 03:07] LABS: ALBUMIN SERUM 3.9 g/dL (3.5-5.0); BILIRUBIN,TOTAL 0.7 mg/dL (0.2-2.0); BUN/CREATININE RATIO 18.51; CALCIUM SERUM 8.4 mg/dL (8.4-10.2); GLOM FILT RATE Estimated 22.5 mL/min (>60); PHOSPHOROUS 5.7 mg/dL (2.5-4.6); POTASSIUM 4.3 mmol/L (3.5-5.1); PROTEIN TOTAL SERUM 6.9 g/dL (6.0-8.3)
[2016-09-28 03:08] LABS: CREATININE SERUM 2.7 mg/dL (0.6-1.4)
[2016-09-28 06:06] LABS: ARTERIAL BLD GAS O2 SATURATION 98.4 % (90.0-100.0); ARTERIAL BLOOD GAS CARBOXY HB 0.3 %sat (0.0-9.0); ARTERIAL BLOOD GAS HCO3 25.1 mmol/L; ARTERIAL BLOOD GAS MET HB 0.8 %sat (0.0-2.0); ARTERIAL BLOOD GAS PCO2 46.2 mmHg (35.0-45.0); ARTERIAL BLOOD GAS pH 7.343 (7.350-7.450)
[2016-09-28 06:11] LABS: ARTERIAL BLOOD GAS ALLEN TEST NORMAL; ARTERIAL BLOOD GAS ART SITE LEFT RADIAL; ARTERIAL BLOOD GAS DELIVERY VENTURI MASK; ARTERIAL DRAW? YES
[2016-09-28] MEDS ORDERED: ASPIRIN81 MG PO (09:01)
[2016-09-28] MEDS ORDERED: MOBIC15 MG PO (09:02)
[2016-09-28] MEDS ORDERED: MIRALAX17 G2 PO (09:03)
[2016-09-28] MEDS ORDERED: SENNA8.6 M1 PO (09:06)
[2016-09-28] MEDS ORDERED: COREG12.5 M1 PO (09:08)
[2016-09-28] MEDS ORDERED: LATANOPROST2.5 ML OU (09:10)
[2016-09-28] MEDS ORDERED: ASTEPRO205.5 MCG/ (09:11)
[2016-09-28] MEDS ORDERED: ZOFRAN8 MG PO (09:13)
[2016-09-28] MEDS ORDERED: ATIVAN0.5 M1 PO (09:15)
[2016-09-28] MEDS ORDERED: BIOFREEZE118 ML TOP (09:15)
[2016-09-29 03:59] LABS: ARTERIAL BLD GAS O2 SATURATION 94.5 % (90.0-100.0); ARTERIAL BLOOD GAS CARBOXY HB 0.5 %sat (0.0-9.0); ARTERIAL BLOOD GAS HCO3 28.4 mmol/L; ARTERIAL BLOOD GAS MET HB 0.7 %sat (0.0-2.0); ARTERIAL BLOOD GAS PCO2 43.7 mmHg (35.0-45.0); ARTERIAL BLOOD GAS pH 7.421 (7.350-7.450)
[2016-09-29 04:04] LABS: ARTERIAL BLOOD GAS ALLEN TEST NORMAL; ARTERIAL BLOOD GAS ART SITE LEFT RADIAL; ARTERIAL BLOOD GAS PO2 71.7 mmHg (80.0-100); ARTERIAL DRAW? YES
[2016-09-29 06:14] LABS: BASOPHIL% 0.5 % (0-2.5); EOSINOPHIL# 0.1 X10e3 (0-0.7); EOSINOPHIL% 1.5 % (0.0-7.0); HEMATOCRIT 34.5 % (35.0-45.0); HEMOGLOBIN 10.6 gm/dL (12.0-16.0); LYMPHOCYTE# 1.6 X10e3 (1.0-3.5); LYMPHOCYTE% 21.3 % (17.0-45.0); MEAN CELL VOLUME 83.4 FL (83-96); MEAN CORPUSCULAR HEMOGLOBIN 25.7 PG (28-34); MEAN CORPUSCULAR HGB CONC 30.9 g/dL (30-36); MEAN PLATELET VOLUME 9.1 FL (6.5-11.5); MONOCYTE# 0.4 X10e3 (0-1.0); MONOCYTE% 5.8 % (3.0-12.0); NEUTROPHIL# 5.4 X10e3 (1.5-7.1); NEUTROPHIL% 70.9 % (40-75); PLATELET COUNT 281 X10e3 (140-420); RED BLOOD COUNT 4.13 X10e (3.90-5.30); RED CELL DISTRIBUTION WIDTH 14.5 % (11.0-15.5); WHITE BLOOD COUNT 7.7 X10e3 (4.0-10.5)
[2016-09-29 06:15] LABS: DIFF IND NO
[2016-09-29 06:51] LABS: THYROID STIMULATING HORMONE 0.72 uIU/ml (0.34-5.60)
[2016-09-29 06:53] LABS: ALBUMIN SERUM 3.1 g/dL (3.5-5.0); ALKALINE PHOSPHATASE 45 U/L (32-92); ALT (SGPT) 16 U/L (10-40); AST (SGOT) 28 U/L (10-42); BILIRUBIN,TOTAL 0.7 mg/dL (0.2-2.0); BLOOD UREA NITROGEN 19 mg/dL (9-23); BUN/CREATININE RATIO 27.14; CALCIUM SERUM 8.7 mg/dL (8.4-10.2); CARBON DIOXIDE 27 mmol/L (22-31); CHLORIDE 113 mmol/L (100-111); CPK (CREATINE PHOSPHOKINASE) 970 IU/L (26-140); CREATININE SERUM 0.7 mg/dL (0.6-1.4); GLOM FILT RATE Estimated ABOVE60 mL/min (>60); GLUCOSE FASTING 88 mg/dL (70-110); POTASSIUM 4.5 mmol/L (3.5-5.1); PROTEIN TOTAL SERUM 6.2 g/dL (6.0-8.3); SODIUM 147 mmol/L (135-145)
[2016-09-29 06:58] LABS: FREE THYROXIN (T4) 1.04 ng/dL (0.58-1.64)
[2016-09-30 05:29] LABS: BASOPHIL# 0.1 X10e3 (0-0.3); BASOPHIL% 0.7 % (0-2.5); EOSINOPHIL# 0.1 X10e3 (0-0.7); EOSINOPHIL% 0.9 % (0.0-7.0); HEMATOCRIT 37.7 % (35.0-45.0); HEMOGLOBIN 11.8 gm/dL (12.0-16.0); LYMPHOCYTE# 1.3 X10e3 (1.0-3.5); LYMPHOCYTE% 11.7 % (17.0-45.0); MEAN CELL VOLUME 82.7 FL (83-96); MEAN CORPUSCULAR HEMOGLOBIN 25.8 PG (28-34); MEAN CORPUSCULAR HGB CONC 31.2 g/dL (30-36); MONOCYTE# 0.5 X10e3 (0-1.0); MONOCYTE% 4.3 % (3.0-12.0); NEUTROPHIL# 8.8 X10e3 (1.5-7.1); NEUTROPHIL% 82.4 % (40-75); PLATELET COUNT 319 X10e3 (140-420); RED BLOOD COUNT 4.56 X10e (3.90-5.30); RED CELL DISTRIBUTION WIDTH 14.2 % (11.0-15.5); WHITE BLOOD COUNT 10.7 X10e3 (4.0-10.5)
[2016-09-30 05:30] LABS: DIFF IND NO
[2016-09-30 06:03] LABS: BLOOD UREA NITROGEN 7 mg/dL (9-23); CALCIUM SERUM 8.7 mg/dL (8.4-10.2); CARBON DIOXIDE 27 mmol/L (22-31); CHLORIDE 103 mmol/L (100-111); CPK (CREATINE PHOSPHOKINASE) 819 IU/L (26-140); CREATININE SERUM 0.7 mg/dL (0.6-1.4); GLOM FILT RATE Estimated ABOVE60 mL/min (>60); GLUCOSE FASTING 152 mg/dL (70-110); POTASSIUM 3.3 mmol/L (3.5-5.1); SODIUM 139 mmol/L (135-145)
[2016-10-01 08:06] LABS: BASOPHIL# 0.1 X10e3 (0-0.3); BASOPHIL% 0.7 % (0-2.5); EOSINOPHIL% 0.4 % (0.0-7.0); HEMATOCRIT 36.4 % (35.0-45.0); HEMOGLOBIN 11.4 gm/dL (12.0-16.0); LYMPHOCYTE# 1.7 X10e3 (1.0-3.5); LYMPHOCYTE% 13.7 % (17.0-45.0); MEAN CORPUSCULAR HEMOGLOBIN 25.7 PG (28-34); MEAN CORPUSCULAR HGB CONC 31.3 g/dL (30-36); MEAN PLATELET VOLUME 9.1 FL (6.5-11.5); MONOCYTE# 0.6 X10e3 (0-1.0); MONOCYTE% 5.1 % (3.0-12.0); NEUTROPHIL# 9.8 X10e3 (1.5-7.1); NEUTROPHIL% 80.1 % (40-75); PLATELET COUNT 325 X10e3 (140-420); RED BLOOD COUNT 4.44 X10e (3.90-5.30); RED CELL DISTRIBUTION WIDTH 14.1 % (11.0-15.5); WHITE BLOOD COUNT 12.2 X10e3 (4.0-10.5)
[2016-10-01 08:19] LABS: DIFF IND NO
[2016-10-01 08:58] LABS: CARBON DIOXIDE 24 mmol/L (22-31); CHLORIDE 105 mmol/L (100-111); CPK (CREATINE PHOSPHOKINASE) 662 IU/L (26-140); CREATININE SERUM 0.7 mg/dL (0.6-1.4); GLOM FILT RATE Estimated ABOVE60 mL/min (>60); GLUCOSE FASTING 130 mg/dL (70-110); POTASSIUM 3.2 mmol/L (3.5-5.1); SODIUM 142 mmol/L (135-145)
[2016-10-01 08:59] LABS: BLOOD UREA NITROGEN <5 mg/dL (9-23); BUN/CREATININE RATIO 7.14
[2016-10-02 06:54] LABS: HEMATOCRIT 35.3 % (35.0-45.0); HEMOGLOBIN 11.1 gm/dL (12.0-16.0); MEAN CELL VOLUME 81.1 FL (83-96); MEAN CORPUSCULAR HEMOGLOBIN 25.4 PG (28-34); MEAN CORPUSCULAR HGB CONC 31.4 g/dL (30-36); MEAN PLATELET VOLUME 8.4 FL (6.5-11.5); RED BLOOD COUNT 4.36 X10e (3.90-5.30); RED CELL DISTRIBUTION WIDTH 14.2 % (11.0-15.5); WHITE BLOOD COUNT 11.5 X10e3 (4.0-10.5)
[2016-10-02 07:30] LABS: ALBUMIN SERUM 3.3 g/dL (3.5-5.0); ALKALINE PHOSPHATASE 46 U/L (32-92); ALT (SGPT) 16 U/L (10-40); AST (SGOT) 23 U/L (10-42); BILIRUBIN,TOTAL 0.5 mg/dL (0.2-2.0); BLOOD UREA NITROGEN 7 mg/dL (9-23); BUN/CREATININE RATIO 8.75; CALCIUM SERUM 8.8 mg/dL (8.4-10.2); CARBON DIOXIDE 28 mmol/L (22-31); CHLORIDE 106 mmol/L (100-111); CREATININE SERUM 0.8 mg/dL (0.6-1.4); GLOM FILT RATE Estimated ABOVE60 mL/min (>60); GLUCOSE FASTING 116 mg/dL (70-110); POTASSIUM 3.4 mmol/L (3.5-5.1); PROTEIN TOTAL SERUM 6.2 g/dL (6.0-8.3); SODIUM 143 mmol/L (135-145)
[2017-03-21] MEDS ORDERED: HYDROCODON-ACE1 EA14 PO (10:12)
[2017-03-21] MEDS ORDERED: COREG6.25 MG PO (10:14)
== END 2016-10-03 15:19 | DRG 682 ==
LOC: CED 14:47 → CEDOF 16:35 → CICCU3 22:15 → C5C 09-29 20:15
PROVIDERS: Emergency Medicine; Family Medicine; Internal Medicine
PROC: 0DB78ZX Excision of Stomach, Pylorus, Via Natural or Artificial Opening Endoscopic, Diagnostic (ICD-10-PCS; 2016-09-27)
PROC: 05H433Z Insertion of Infusion Device into Left Innominate Vein, Percutaneous Approach (ICD-10-PCS; principal; 2016-09-30)
PROC: B54NZZA Ultrasonography of Left Upper Extremity Veins, Guidance (ICD-10-PCS; 2016-09-30)
DX: N17.9 Acute kidney failure, unspecified (principal); J96.02 Acute respiratory failure with hypercapnia; J96.01 Acute respiratory failure with hypoxia; G92 Toxic encephalopathy; E87.2 Acidosis; M62.82 Rhabdomyolysis; I69.351 Hemiplegia and hemiparesis following cerebral infarction affecting right dominant side; Z99.3 Dependence on wheelchair; M06.9 Rheumatoid arthritis, unspecified; G40.909 Epilepsy, unspecified, not intractable, without status epilepticus; K44.9 Diaphragmatic hernia without obstruction or gangrene; K29.70 Gastritis, unspecified, without bleeding; K25.9 Gastric ulcer, unspecified as acute or chronic, without hemorrhage or perforation; E87.6 Hypokalemia; I25.10 Atherosclerotic heart disease of native coronary artery without angina pectoris; G89.4 Chronic pain syndrome; F41.1 Generalized anxiety disorder; Z79.82 Long term (current) use of aspirin; E86.0 Dehydration; K22.9 Disease of esophagus, unspecified
CPT/HCPCS: 36415; 36600; 51701; 70450; 71010; 76770; 80048; 80053; 80076; 81003; 82140; 82550; 82553; 82570; 82607; 82746; 82803; 82947; 83605; 83735; 84100; 84300; 84439; 84443; 84484; 85025; 85027; 87040; 87086; 88305; 88312; 89190; 92526; 92610; 93005; 94640; 94660; 94760; 96361; 96374; 96376; 99285; C9113; G8996-GN; G8997-GN; G8998-GN; J0360; J1630; J1953; J2060; J2250; J2310; J2405; J2543; J3420

== ENCOUNTER 2017-02-13 09:35 | Inpatient (IN) | payer MEDICARE, OTHER ==
[~2017-02-13] VITALS: Ht 170.2 cm; Wt 82.9 kg
--- NOTE | ~2017-02-13 | EKG ---
[id number] NAME: BHAVYA PETE MR#: [id number] Normal sinus rhythm. Nonspecific ST-T wave changes. Prolonged QT interval. No old EKG to compare. Dictated by...
--- NOTE | ~2017-02-13 | FU ---
[facility] Nutrition Therapy DATE: 02/19/17 Patient: BHAVYA EUGENE PETE Physician: FE Address: [address] [place] [address] Room/Bed: [address] [place] [address], Zip: [place] [address] Admit Date: 02/13/17 Date of : [birth year] Height: 5 7 Weight: 182 82.9 NUTRITION MONITORING/FOLLOW-UP: Reason: PT SEEN FOR FOLLOW-UP DX: ABD PAIN Anthropometrics: 5'7", WT: 182# (ADMIT WEIGHT) (82.7 KG), BMI: 28.5 (NO UPDATED WEIGHTS) -RD ASSESSMENT 02/14/17: 188# ADMIT WEIGHT Labs: GLU: 120, BUN: <5, CA+: 8.3, ALB: 3.1 Meds: PEPCID, LIPITOR, REGLAN, ZOFRAN, PHENERGAN, NACL I&O's: 3070/1450 Skin: PREVIOUSLY NOTED EDEMA: BLE TRACE Assessment: CHART REVIEWED AND EVENTS NOTED. PT SEEN FOR FOLLOW-UP. PT IS POD #5 SIGMOID RESECTION. PT'S DIET HAS BEEN ADVANCED TO HEALTHY HEART THIS AM (FIRST DIET ADVANCEMENT SINCE ADMIT 02/13/17). PT AND FAMILY REPORT PT TOOK BITES OF EGGS. PT NOTED TO HAVE DIFFICULTY COMPREHENDING. THIS RD ENCOURAGED SLOW GRADUAL PO INTAKE + SUPPLEMENT INTAKE, PT AGREED TO MAGIC CUP BID, RD TO ORDER. FAMILY REPORTED NO DIET QUESTIONS AT THIS TIME. PER CHART, ?PLANS IN PLACE FOR PT TO D/C HOME 02/20/17. RD TO FOLLOW. Dx: INADEQUATE PROTEIN-ENERGY INTAKE R/T DECREASED APPETITE, CURRENT DIAGNOSIS, CURRENT CLINICAL CONDITION AEB PT REPORT, ~22#/10% WEIGHT LOSS NOTED IN PAST 5 MONTHS.-ACTIVE Intervention: 1. HEALTHY HEART DIET 2. MAGIC CUP BID W/MEALS Monitoring, Evaluation and Goals: 1. ORAL INTAKE; ADVANCE DIET AND CONSUME/TOLERATE >50% OF MEALS-NOT MET/IN PROGRESS 2. WEIGHTS; PREVENT FURTHER WEIGHT LOSS-IN PROGRESS (NO CURRENT WEIGHT SINCE ADMIT) MONITOR: -PO INTAKE/APPETITE -WEIGHTS -SUPPLEMENT INTAKE Recommendations: 1. PLEASE ORDER JENSEN MAGIC CUP BID FOR ADDITIONAL PROTEIN AND KCAL 2. IF PT CONSUMES <50% OF MEALS, RECOMMEND TO CHANGE CURRENT DIET ORDER TO REGULAR [facility] Nutrition Therapy DATE: 02/19/17 Patient: BHAVYA EUGENE JUAN R Physician: FE Address: [address] [place] [address] Room/Bed: [address] [place] [address], Zip: [place] [address] Admit Date: 02/13/17 Date of : [birth year] Height: 5 7 Weight: 182 82.9 3. PLEASE OBTAIN UPDATED/CURRENT WEIGHT FOR MONITORING PURPOSES 4. APPRECIATE FAMILY AND STAFF TO ENCOURAGE ADEQUATE PO INTAKE RD WILL F/U PER PROTOCOL PT IS MILD/MODERATELY COMPROMISED Respectfully, RHEA JACK MS, RD, LD Food and Nutritional Services [facility] cc: client file
--- NOTE | ~2017-02-13 | HP ---
Unit #: [id number] #: [id number] Patient: BHAVYA PETE [id number] [address] [address] [id number] MR#: [id number] NAME: BHAVYA PETE ROOM: Age: 71 Sex: F Admission Date: 02/13/2017 : 1945 Attending Physician: Randal Brown M.D. Primary Care Physician: Calvin Deng Jr., M.D. HISTORY AND PHYSICAL CHIEF COMPLAINT Colon mass. HISTORY OF PRESENT ILLNESS The patient is a 71-year-old female with a past medical history of hypertension, cerebrovascular accident, coronary artery disease, seizure disorder, small bowel obstruction and chronic pain. The patient is a direct admit from Dr. Brown for the above. The patient has had a several month history of abdominal pain. She states that the pain is "everywhere." It has been fairly constant in nature. There are no exacerbating or alleviating factors. She has had decreased appetite. She denies any vomiting. She has chronic constipation. She underwent outpatient colonoscopy today and was found to have an obstructing mass in the sigmoid colon. She is being admitted to [facility] for evaluation and further treatment. The patient reports a 20-pound weight loss over the past 2-3 months. PAST MEDICAL HISTORY 1. Admission to [facility] 09/27/2016 through 10/03/2016 for altered mental status and respiratory failure. She did complain of abdominal pain during that admission. She underwent EGD that showed a diffuse gastritis as well as a 6 mm ulcer in the gastric antrum. 2. 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 3. Coronary artery disease. 4. Hypertension. 5. Seizure disorder, maintained on Keppra. 6. History of small bowel obstruction. 7. Chronic pain. Maintained on narcotics. 8. Echocardiogram 11/22/2013 was technically limited, but showed an ejection fraction of 50% with mild concentric left ventricular hypertrophy, moderate to severe mitral regurgitation, mild tricuspid regurgitation, mild aortic regurgitation. 9. Valvular heart disease with echocardiogram results as noted above. PAST SURGICAL HISTORY 1. EGD 10/02/2016 showed diffuse gastritis as well as a 6 mm ulcer in the gastric antrum. 2. Colonoscopy today showed sigmoid mass. 3. Craniotomy. 4. Hysterectomy. Unit #: [id number] #: [id number] Patient: BHAVYA PETE SOCIAL HISTORY The patient is currently in a prison. She is in a wheelchair. There is no tobacco or alcohol use. Her code status is a full code. FAMILY HISTORY Unobtainable from the patient. ALLERGIES No known drug allergies. HOME MEDICATIONS Per the discharge summary from 10/03/2016, includes 1. Hydralazine 10 mg b.i.d. 2. Coreg 25 mg b.i.d. 3. Keppra 500 mg b.i.d. 4. Cymbalta 30 mg daily. 5. Remeron 15 mg daily. 6. Zofran 8 mg q.8 h. p.r.n. 7. Ativan 0.5 mg q.8 h. p.r.n. 8. Norvasc 5 mg b.i.d. 9. Xalatan eyedrops. 10. Pepcid 20 mg b.i.d. 11. Aspirin 81 mg daily. 12. [place] 5/325 mg q.8 h. p.r.n. 13. Vitamin B12 1000 mcg IM weekly. Home medications will need to be reviewed and verified. REVIEW OF SYSTEMS A complete review of systems is negative except as indicated in the history of present illness. PHYSICAL EXAMINATION GENERAL: The patient is an female who is awake and alert, in no acute distress. VITALS: Pending. HEENT: The head is atraumatic. Mucous membranes are moist. NECK: Supple. Trachea midline. LUNGS: Clear to auscultation bilaterally with no increased work of breathing. HEART: Regular rate and rhythm. ABDOMEN: Soft. She is mildly tender to palpation throughout. Bowel sounds are present in all four quadrants. EXTREMITIES: The right upper extremity is contracted. There is no pedal edema. NEUROLOGIC: The patient is oriented to person and place. She follows commands. She is at baseline per her daughter who is at bedside. PSYCHIATRIC: The patient is cooperative. SKIN: Skin of examined areas is warm and dry. ASSESSMENT The patient is a 71-year-old female with 1. Colon mass. The patient's revised [place] Cardiac Risk Index is consistent with at least a 2.5% rate of cardiac , nonfatal myocardial infarction, nonfatal cardiac arrest based on the history of cerebrovascular accident and coronary artery disease. 2. Abdominal pain. 3. Weight loss. Unit #: [id number] #: [id number] Patient: BHAVYA PETE 4. Hypertension. 5. History of coronary artery disease. I do not see a cardiac catheterization report in [facility]. She has seen Dr. Nino in the past, on 11/22/2013. 6. History of cerebrovascular accident with residual right-sided weakness. 7. Seizure disorder, maintained on Keppra. 8. Chronic pain, maintained on narcotics. 9. History of small bowel obstruction. 10. Valvular heart disease with echocardiogram results as noted above. 11. History of antral ulcer. PLAN 1. Admit to intermediate level. 2. N.p.o. until seen by [facility]. 3. Consult [facility] regarding colon mass. 4. Consult Dr. Brown regarding colon mass. 5. Consult Dr. Jimenes for cardiac clearance. 6. Check labs, including CBC, comprehensive metabolic panel, INR. 7. Check urinalysis with culture and sensitivity. 8. EKG and chest x-ray as part of preoperative evaluation. 9. Normal saline at 75 cc an hour. 10. P.r.n. morphine. 11. P.r.n. Zofran. 12. SCDs for DVT prophylaxis. 13. Additional workup and consultants based on the above. 14. Regarding code status, the patient is a full code. Dictated by Nuzhat Cline TD: 02/13/2017 15:21 JOB #: [id number] HISTORY AND PHYSICAL Page 1 of 1 X Martina Roper MD X HISTORY AND PHYSICAL
--- NOTE | ~2017-02-13 | OR ---
Unit #: [id number] #: [id number] Patient: BHAVYA PETE [id number] [address] [place], [place] [address] [id number] I MR#: [id number] NAME: BHAVYA PETE ROOM: 467 Date of Procedure: 02/14/2017 Admission Date: 02/13/2017 Surgeon: Brian Marin Jr., M.D. : 1945 Attending Physician: Glenn Triana M.D. Primary Care Physician: Calvin Deng Jr., M.D. 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 It was felt the patient needed this resected and was brought to the operating room at this time for this procedure. PREOPERATIVE DIAGNOSIS Obstructing carcinoma of the sigmoid colon. POSTOPERATIVE DIAGNOSIS Obstructing carcinoma of the sigmoid colon, noting no obvious metastatic disease, but extensive adhesions. ANESTHESIA General with endotracheal intubation. HEALTH AND FITNESS INSTRUCTOR Radha Cronin. PROCEDURES PERFORMED Exploratory laparotomy, extensive lysis of adhesions requiring approximately an hour and a half of lysis, closure of a small inadvertent enterotomy and sigmoid resection with a [id number] VALE anastomosis. DESCRIPTION OF PROCEDURE The patient was positioned in supine position. After being anesthetized and intubated, she was prepped and draped in routine fashion for exploration through midline incision. An incision was made in the midline in her scar from her previous surgery extended above and below the umbilicus. This was carried down through subcutaneous tissue down through the linea alba into the peritoneal cavity. Upon opening the peritoneal cavity, there were multiple dense small bowel adhesions to the anterior abdominal wall, which were meticulously taken down with the incision finally being opened with Bovie cautery. The small bowel was checked. There was one small enterotomy which was present, which was closed with a continuous 3-0 Vicryl canal stitch followed by interrupted 4-0 silk Lembert sutures. The entire small bowel was run. There was no evidence of any other injuries, although there continued to be significant adhesions. The colon was adhesed to the left lateral abdominal wall area. This was freed up and there was an obvious colon cancer in the mid sigmoid colon. The colon was stapled and divided proximal and distal to the Unit #: [id number] #: [id number] Patient: BHAVYA PETE VALORIE cancer with excellent margins and a good portion of mesentery. After the specimen was removed, vessels were ligated in the mesentery with 0 silk sutures. The colon was brought down and anastomosed [id number] to the distal sigmoid with a VALE stapling device. Staple line was checked and noted to be totally hemostatic. The opening left behind was then closed with a 3-0 Vicryl canal stitch followed by interrupted 3-0 silk Lembert sutures. The abdomen was irrigated with saline solution and after total hemostasis was noted, the midline was closed with interrupted #1 Vicryl suture in a single fascial layer closure. Subcutaneous tissue was irrigated and after hemostasis achieved with Bovie cautery, the skin edges were approximated with stainless-steel skin clips and skin stapling device. Sterile dressings were applied externally. Estimated blood loss less than 250 to 300 mL. The patient received less than 3000 mL crystalloid solution during the procedure. Sponges and instrument counts were correct x3. No drains used. No complications. The patient was taken to the recovery room with stable vital signs in satisfactory condition. Dictated by... Brian Marin Jr., MAnnika HALL/dakotah TD: 02/15/2017 14:17 JOB #: [id number] OPERATIVE REPORT Page 1 of 1 X Brian Marin MD X PROCEDURE OPERATIVE NOTE
--- NOTE | ~2017-02-13 | DS ---
Unit #: [id number] #: [id number] Patient: BHAVYA PETE [id number] [address] [place], [place] [address] [id number] I MR#: [id number] NAME: BHAVYA PETE ROOM: 467 Age: 71 Sex: F Admission Date: 02/13/2017 : 1945 Discharge Date: Attending Physician: Glenn Triana M.D. Primary Care Physician: Calvin Deng Jr., M.D. DISCHARGE SUMMARY PERTINENT HISTORY AND HOSPITAL COURSE The patient is a 71-year-old woman with a history of hypertension, cerebrovascular accident, coronary artery disease, seizure disorder, small bowel obstruction who presents with symptoms of abdominal pain. She underwent an outpatient colonoscopy and was found to have an obstructive mass. Surgery consultation was obtained and the obstructing mass was resected. 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 Oncology was consulted, and the patient will follow up with Dr. Bhakti Whitfield, Oncology, as an outpatient, phone number [phone]. Patient is to follow up with [facility], Dr. Denny, in one week to have karina out. Patient is to be discharged today. DISCHARGE MEDICATIONS 1. Aspirin 81 mg p.o. daily. 2. Hydrocodone 7.5/325 mg one to two tablets p.o. q.4 p.r.n. for pain. 3. Protonix 20 mg p.o. daily. 4. Amlodipine 5 mg p.o. daily. 5. Senna Colace two tabs at bedtime. 6. Latanoprost eye drops to both eyes at bedtime. 7. Hydralazine 10 mg p.o. b.i.d. 8. Pepcid 20 mg p.o. b.i.d. 9. Keppra 500 mg p.o. b.i.d. 10. Cymbalta 30 mg p.o. daily. 11. Lorazepam 0.5 mg p.o. b.i.d. as needed for anxiety. 12. Coreg 6.25 mg p.o. twice daily. DISCHARGE INSTRUCTIONS 1. Patient is to follow up with oncology, Dr. Bhakti Whitfield, as an outpatient. 2. The patient is to follow up with gastroenterology, Dr. Brown, as an outpatient. 3. The patient is to follow up with [facility] in one week to have karina removed, Dr. Denny. 4. The patient to be discharged to senior care today. Dictated by... Nuzhat Romano TD: 02/20/2017 11:16 JOB #: [id number] Unit #: [id number] #: [id number] Patient: BHAVYA PETE VALORIE DISCHARGE SUMMARY Page 1 of 1 X X DISCHARGE SUMMARY
--- NOTE | ~2017-02-13 | EKG ---
PATIENT: BHAVYA PETE UNIT #: [id number] Ventricular Rate: 62 BPM Atrial Rate: 62 BPM P-R Interval: 194 ms QRS Duration: 82 ms Q-T Interval: 490 ms QTC Calculation(Bezet): 497 ms P [place]: 25 degrees Calculated R [place]: 22 degrees Calculated T [place]: 48 degrees Diagnosis Line: Normal sinus rhythm Diagnosis Line: Prolonged QT Diagnosis Line: Abnormal ECG Diagnosis Line: When compared with ECG of 27-SEP-2016 13:36, Diagnosis Line: No significant change was found Diagnosis Line: Confirmed by ZEYAD WHITE MD ([id number]) on Diagnosis Line: 02/15/2017 7:14:19 AM INTERPRETING MD: CINDY MINOR
--- NOTE | ~2017-02-13 | A ---
[facility] Nutrition Therapy DATE: 02/14/17 Patient: BHAVYA EUGENE JUAN R Physician: FE Address: [address] [place] [address] ROAD Room/Bed: [address] [place] [address], Zip: [place] [address] Admit Date: 02/13/17 Date of : [birth year] Height: 5 7 Weight: 182 82.9 NUTRITIONAL ASSESSMENT: REASON: 6 NUTRITION RISK PT RE: WEIGHT LOSS + POOR PO INTAKE, ALSO CONSULT RE: WEIGHT LOSS PT IS 71 Y.O. FEMALE ADMITTED FOR ABD PAIN PMH: SKILLED NURSING RESIDENT, CVA (R SIDED WEAKNESS), HTN, HLD, CAD, JUVENAL, SEIZURE DISORDER, SMALL BOWEL OBSTRUCTION Anthropometrics: 5'7", WT: 188# (PER PT & FAMILY) (85 KG), BMI: 29.4 Labs: WNL Meds: ZOFRAN, NACL I/O & Bowel function: 100/4 Skin Integrity: PER SEPTEMBER RD ASSESSMENT: EXOCORIATION (R) BUTTOCKS; SCARS (ABD, KNEE); REDNESS/BRUISE (L) FOREARM EDEMA: BLE TRACE EDEMA Estimated Nutrition Needs: INCREASED NEEDS 2' DECREASED PO INTAKE AND APPETITE, WEIGHT LOSS NOTED Assessment: CHART REVIEWED AND EVENTS NOTED. PT SEEN FOR 6 MALNUTRITION RISK PT RE: WEIGHT LOSS + POOR PO INTAKE. PER RN AND CHART, PLANS IN PLACE FOR SIGMOID RESECTION TODAY (PT NPO AT THIS TIME). PT REPORTS DECREASED PO INTAKE 2' DECREASED APPETITE D/T ABD PAIN AND CONSTIPATION NOTED PAST SEVERAL WEEKS. FAMILY ADDS PT'S APPETITE "BEEN ON AND OFF" FOR YEARS. OF NOTE, PT RECEIVES REGULAR DIET AT SKILLED NURSING, DENYING NO SWALLOWING OR CHEWING DIFFICULTIES. PT AND FAMILY REPORT PT'S UBW IS ~210#/NOTES LOSING ~22# PAST 5 MONTHS (SINCE SEPTEMBER 2016)/10% WEIGHT LOSS NOTED. THIS RD ENCOURAGED SLOW GRADUAL PO INTAKE + SMALL FREQUENT MEALS, PT AND FAMILY AGREED. PT AND FAMILY REPORTED NO DIET QUESTIONS AT THIS TIME. RD TO FOLLOW. SEE RECOMMENDATIONS BELOW. Dx: INADEQUATE PROTEIN-ENERGY INTAKE R/T DECREASED APPETITE, CURRENT DIAGNOSIS, CLINICAL CONDITION AEB PT REPORT ABOVE, ~22#/10% WEIGHT LOSS NOTED IN PAST 5 MONTHS. Intervention: 1. NPO 2. RD CONSULT Monitoring, Evaluation and Goals: [facility] Nutrition Therapy DATE: 02/14/17 Patient: BHAVYA PETE Physician: FE Address: [address] [place] [address] Room/Bed: [address] [place] [address], Zip: [place] [address] Admit Date: 02/13/17 Date of : [birth year] Height: 5 7 Weight: 182 82.9 1. ORAL INTAKE; ADVANCE DIET AND CONSUME/TOLERATE >50% OF MEALS 2. WEIGHTS; PREVENT UNINTENTIONAL WEIGHT LOSS MONITOR: -DIET ADVANCEMENT/PO INTAKE/APPETITE -WEIGHTS Recommendations: 1. ONCE MEDICALLY FEASIBLE, BEGIN WITH CLEARS AND ADVANCE DIET TOLERATED TO REGULAR + TRANSPORTATION SPECIALIST EVAL IF APPROPRIATE 2. PLEASE OBTAIN CURRENT PHOS LEVEL-LAST ONE WAS IN SEPTEMBER 2016 3. ENCOURAGE SLOW GRADUAL PO INTAKE. PLEASE ORDER APPROPRIATE SUPPLEMENTS BID ONCE DIET ADVANCES FOR ADDITIONAL PROTEIN AND KCAL RD WILL F/U PER PROTOCOL PT IS MODERATELY COMPROMISED Respectfully, RHEA JACK MS, RD, LD Food and Nutritional Services [facility] cc: client file
--- NOTE | ~2017-02-13 | CO ---
Unit #: [id number] #: [id number] Patient: BHAVYA SONG [id number] [address] [address] [id number] I MR#: [id number] NAME: BHAVYA SONG ROOM: 467 Age: 71 Sex: F Admission Date: 02/13/2017 : 1945 Attending Physician: Glenn Triana M.D. Primary Care Physician: Calvin Deng Jr., M.D. Consultation Date: 02/17/2017 CONSULTATION REPORT REASON FOR CONSULTATION Colon cancer T3 N1. HISTORY OF PRESENT ILLNESS Ms. Song is a very pleasant 71-year-old lady with past medical history of hypertension, cerebrovascular accident, coronary artery disease, seizure disorder. The patient now presented with chronic abdominal pain. She was found to have bowel obstruction. She underwent colonoscopy and was found to have a large obstructing mass in the sigmoid colon. Because of it, she was admitted to the hospital and underwent surgical intervention. She underwent sigmoid resection with extensive lysis of abdominal adhesions. She is now found to have T3 N1 stage III colon cancer. All the surgical margins were negative, 1 out of 13 lymph node was positive for adenocarcinoma which was moderately differentiated. The patient is currently postoperative day #3, she is recovering from the surgery quite well. Other than anemia, she has no other significant current problems. The patient's comprehension is limited. She is only oriented to person, she is interactive and talking, but her comprehension is relatively poor. Currently, there is no family member on the bedside. PAST MEDICAL HISTORY Significant for, 1. Hemorrhagic cerebrovascular accident with significant residual right-sided weakness. 2. History of respiratory failure. 3. Coronary artery disease. 4. Hypertension. 5. Seizure disorder. 6. Valvular heart disease. PAST SURGICAL HISTORY Remarkable for EGD, colonoscopy, craniotomy, and hysterectomy. SOCIAL HISTORY The patient is currently in a fci. She is in a wheelchair. She does not smoke. Does not drink alcohol. FAMILY HISTORY Unobtainable. ALLERGIES No known drug allergies. Unit #: [id number] #: [id number] Patient: BHAVYA SONG HOME MEDICATIONS Hydralazine, Coreg, Keppra, Cymbalta, Remeron, Zofran, Ativan, Norvasc, Pepcid, aspirin, [place], vitamin B12 injection weekly, and Xalatan eye drops. REVIEW OF SYSTEMS CONSTITUTIONAL: The patient currently is in the bed. She has significant right-sided weakness. EYES: Patient denies any visual symptoms. EARS, NOSE, AND THROAT: No difficulties with hearing. No symptoms of rhinitis or sore throat. CARDIOVASCULAR: Patient denies chest pains, palpitations, orthopnea, or paroxysmal nocturnal dyspnea. RESPIRATORY: No dyspnea on exertion, no wheezing or cough. GASTROINTESTINAL: No nausea, vomiting, diarrhea, constipation, abdominal pain, hematochezia or melena. GENITOURINARY: No urinary hesitancy or dribbling. No nocturia or urinary frequency. No abnormal urethral discharge. MUSCULOSKELETAL: No myalgias or arthralgias. NEUROLOGIC: No chronic headaches, no seizures. Patient denies numbness, tingling. PSYCHIATRIC: Patient denies problems with mood disturbance. No problems with anxiety. ENDOCRINE: No excessive urination or excessive thirst. DERMATOLOGIC: Patient denies any rashes or skin changes. ALLERGIC/IMMUNOLOGIC: Denies any symptoms. HEMATOLOGIC/LYMPHATIC: Denies any symptoms. PHYSICAL EXAMINATION GENERAL: Patient appears well developed, well nourished, and healthy. Personality: Pleasant and cooperative. Mental status: Alert and oriented. Stature: ECOG performance score 0. HEENT: Examination of head, eyes, ears, nose and throat is unremarkable. HEMATOLOGIC/LYMPHATIC: There is no palpable adenopathy in the inguinal, axillary or cervical areas. CARDIOVASCULAR: S1 and S2 regular. Normal rate without any murmurs or gallops. RESPIRATORY: Chest symmetrical, normal, breath sounds equal, bilaterally symmetrical. No rales or rhonchi, and no dullness to percussion. ABDOMEN/GASTROINTESTINAL: Abdomen is soft, nontender, and without palpable masses. No hepatosplenomegaly. EXTREMITIES: Peripheral pulses are normal. There is no edema, cyanosis, clubbing or significant varicosities. NEUROLOGICAL: The patient is only oriented to person, her comprehension is relatively poor. MUSCULOSKELETAL: No evidence of joint swelling, bone tenderness or muscle tenderness is appreciable. SKIN: No lesions or rashes. PSYCHIATRIC: No delusions or hallucinations, no loose associations, no flight of ideas, no tangentiality. Affect is appropriate. No psychomotor slowing or agitation. Eye contact is appropriate. DIAGNOSTIC STUDIES LABORATORY RESULTS: Hemoglobin is 8.3 g. ASSESSMENT AND PLAN Ms. Song is a very pleasant 71-year-old lady, who was undergone sigmoid resection for adenocarcinoma of the colon. She is found to have T3 N1 Unit #: [id number] #: [id number] Patient: BHAVYA SONG colon cancer. Ideally, she will benefit from adjuvant chemotherapy, but she has significant other comorbidities including history of stroke with residual right-sided weakness. Currently, her comprehension is relatively poor. There is no family member available at this point. I have discussed this briefly with the patient and I have communicated to her nurse. We would like to see her in the office after discharge and discuss further treatment options at that point. At the moment I am going to add intravenous iron to help recover anemia. I would like to thank Dr. Brown and Dr. Denny for giving me the opportunity to be involved in the care of this pleasant lady. Dictated by... Danielle Whitfield M.D., Ph.D. LUCA/dakotah TD: 02/18/2017 02:34 JOB #: [id number] CONSULTATION REPORT Page 1 of 1 X X CONSULTATION REPORT
--- NOTE | ~2017-02-13 | CR63 ---
[facility] A Service of [facility] RADIOLOGY TEXT RESULTS PATIENT: BHAVYA PETE LOCATION: [facility] : [birth year] UNIT #: [id number] AGE: [address]: NANDO MONDRAGON V SEX: F ORDER DR: [id number] [facility] [address] [place], [place] [address] [id number] MR#: [id number] Acc #: [id number] NAME: BHAVYA PETE : 1945 SEX: F STUDY DATE/TIME: 02/13/2017 16:00 UNIT: [address] ROOM: [facility] STUDY DESCRIPTION: CR Chest 2 View Attending Physician: Randal Brown M.D. Ordering Physician: Randal Brown M.D. Primary Care Physician: Calvin Deng Jr., M.D. MEDICAL IMAGING REPORT This report is preliminary unless electronic signature is present EXAM AP and lateral radiographs of the chest, two views chest. DATE 02/13/2017 HISTORY Preop clearance. Colon mass. REPORT AP and lateral radiographs of the chest are presented. COMPARISON 09/29/2016 FINDINGS The heart is mildly enlarged. Tortuous descending thoracic aorta. These are stable findings. The lungs are well inflated. There is no acute pulmonary disease, pleural effusion or pneumothorax. No suspicious nodule. Stable degenerative changes in the spine. Dictated by... Antony Robbins M.D. THIS IS AN ELECTRONICALLY VERIFIED REPORT Antony Robbins M.D. at 02/14/2017 1:21 PM Abimael TD: 02/13/2017 18:43 JOB #: [id number] [facility] A Service of [facility] RADIOLOGY TEXT RESULTS PATIENT: BHAVYA PETE LOCATION: [facility] : 49 UNIT #: [id number] AGE: [address]: MORE,NANDO V SEX: F ORDER DR: MEDICAL IMAGING REPORT Page 1 of 1 COPY
--- NOTE | ~2017-02-13 | OR ---
Unit #: [id number] #: [id number] Patient: BHAVYA PETE [id number] [address] [place], [place] [address] [id number] MR#: [id number] NAME: BHAVYA PETE ROOM: 467 Date of Procedure: 02/13/2017 Admission Date: 02/13/2017 Surgeon: Randal Brown M.D. : 1945 Attending Physician: Glenn Triana M.D. Primary Care Physician: Calvin Deng Jr., M.D. OPERATIVE REPORT PROCEDURE PERFORMED Esophagogastroduodenoscopy with biopsy and colonoscopy to sigmoid colon with biopsies. INDICATIONS FOR PROCEDURE The patient with history of peptic ulcer disease, gastric ulcers, anemia also with never had a screening colonoscopy. MEDICATIONS Monitored anesthesia. POSTOPERATIVE FINDINGS 1. Large esophageal diverticulum in the upper-third of the esophagus. 2. Hiatal hernia. 3. Gastritis. Biopsies taken. No ulcers were seen as previously documented. 4. Normal duodenum and distal duodenum. 5. Obstructive mass, sigmoid colon at about 30 cm to 40 cm amos. Biopsies taken. Scope could be completed past this. 6. Internal hemorrhoids. PLAN The patient to be admitted for possible surgical consideration. Continue PPI therapy. DESCRIPTION OF PROCEDURE The patient was explained of the procedure, risks, and benefits along with risks and benefits of anesthesia. She was brought to the endoscopy room. Propofol anesthesia was given. Bite block was placed. The scope was passed down the mouth into the esophagus, stomach, duodenum, and distal duodenum. Findings as described. Biopsies taken. Gently, I pulled the scope out of the patient's mouth. She tolerated this part very well. At this time, she was turned around and repositioned for colonoscopy. Rectal exam was done, which was normal. Colonoscope was lubricated, passed up the 30 to 40 cm, at this point there was an obstructive mass, multiple biopsies taken. Colonoscope was then gradually withdrawn. She tolerated it well. No major complications seen. Dictated by... Unit #: [id number] #: [id number] Patient: BHAVYA PETE Nuzhat Guardado/dakotah TD: 02/14/2017 14:14 JOB #: [id number] OPERATIVE REPORT Page 1 of 1 X Randal Brown MD PROCEDURE OPERATIVE NOTE
--- NOTE | ~2017-02-13 | CR4 ---
[facility] A Service of [facility] & [facility] RADIOLOGY TEXT RESULTS PATIENT: BHAVYA PETE LOCATION: [place] [address]- : [birth year] UNIT #: [id number] AGE: [address]: NANDO MONDRAGON V SEX: F ORDER DR: [id number] [facility] [address] [place], [place] [address] [id number] MR#: [id number] Acc #: [id number] NAME: BHAVYA PETE : 1945 SEX: F STUDY DATE/TIME: 02/18/2017 7:53 UNIT: [facility] ROOM: [facility] STUDY DESCRIPTION: CR Abdomen Flat Upright or Dec Attending Physician: Nando Mondragon M.D. Ordering Physician: Brian Marin Jr., M.D. Primary Care Physician: Calvin Deng Jr., M.D. MEDICAL IMAGING REPORT This report is preliminary unless electronic signature is present EXAM Abdomen, flat and upright, 2 views, 02/18/2017. HISTORY Abdominal distension and pain since 02/13/2017, abdominal bloating. FINDINGS Two views of the abdomen show diffuse gaseous distension of the small and large bowel, likely representing ileus. No free air is identified. Surgical karina are noted in the right lower quadrant of the abdomen. The bony structures are normal. IMPRESSION Diffuse gaseous distension of the small and large bowel, probably representing ileus. No bowel obstruction or free air is identified. Postsurgical changes within the abdomen. Dictated by... Wesley Lara M.D. THIS IS AN ELECTRONICALLY VERIFIED REPORT Wesley Lara M.D. at 02/19/2017 7:13 AM ROJAS/virgilio TD: 02/18/2017 09:19 JOB #: [id number] MEDICAL IMAGING REPORT Page 1 of 1 COPY
[~2017-02-13 09:35] MED LIST changes: +ASPIRIN81 MG PO; +ASTEPRO205.5 MCG/; +ATIVAN0.5 M1 PO; +BIOFREEZE118 ML TOP; +COREG12.5 M1 PO; +LATANOPROST2.5 ML OU; +MIRALAX17 G2 PO; +SENNA8.6 M1 PO; +ZOFRAN8 MG PO
[2017-02-13] MEDS ORDERED: ASPIRIN81 MG PO (10:01)
[2017-02-13] MEDS ORDERED: CYANOCOBAL1000 MCG/M INJ (10:02)
[2017-02-13] MEDS ORDERED: K-DUR20 ME1 PO (10:03)
[2017-02-13] MEDS ORDERED: PANTOPRAZOLE SO20 MG PO (10:03)
[2017-02-13] MEDS ORDERED: CYMBALTA30 MG PO (10:03)
[2017-02-13] MEDS ORDERED: FAMOTIDINE20 M1 PO (10:04)
[2017-02-13] MEDS ORDERED: CARVEDILOL25 MG PO (10:04)
[2017-02-13] MEDS ORDERED: AMLODIPINE BESYL5 MG PO (10:05)
[2017-02-13] MEDS ORDERED: APRESOLINE10 M1 PO (10:05)
[2017-02-13] MEDS ORDERED: LEVETIRACETAM500 M1 PO (10:06)
[2017-02-13] MEDS ORDERED: LATANOPROST2.5 ML OU (10:06)
[2017-02-13] MEDS ORDERED: CVS SENNA PLUS1 EACH PO (10:07)
[2017-02-13] MEDS ORDERED: LORTAB 5-325 M1 EACH PO (10:08)
[2017-02-13] MEDS ORDERED: ATIVAN0.5 MG PO (10:08)
[2017-02-13] MEDS ORDERED: ROBAFEN-DM SYR118 ML PO (10:09)
[2017-02-13] MEDS ORDERED: AZELASTINE137 MCG/0. (10:10)
[2017-02-13] MEDS ORDERED: ARCTIC RELIE113.4 GM TOP (10:11)
[2017-02-13] MEDS ORDERED: ONDANSETRON HCL8 MG PO (10:11)
[2017-02-13 16:04] LABS: BASOPHIL% 0.6 % (0-2.5); EOSINOPHIL# 0.1 X10e3 (0-0.7); EOSINOPHIL% 1.4 % (0.0-7.0); HEMATOCRIT 34.4 % (35.0-45.0); HEMOGLOBIN 11.3 gm/dL (12.0-16.0); LYMPHOCYTE# 1.5 X10e3 (1.0-3.5); LYMPHOCYTE% 22.8 % (17.0-45.0); MEAN CELL VOLUME 80.5 FL (83-96); MEAN CORPUSCULAR HEMOGLOBIN 26.4 PG (28-34); MEAN CORPUSCULAR HGB CONC 32.8 g/dL (30-36); MEAN PLATELET VOLUME 9.5 FL (6.5-11.5); MONOCYTE# 0.3 X10e3 (0-1.0); MONOCYTE% 4.9 % (3.0-12.0); NEUTROPHIL# 4.6 X10e3 (1.5-7.1); NEUTROPHIL% 70.3 % (40-75); PLATELET COUNT 389 X10e3 (140-420); RED BLOOD COUNT 4.28 X10e (3.90-5.30); RED CELL DISTRIBUTION WIDTH 15.2 % (11.0-15.5); WHITE BLOOD COUNT 6.5 X10e3 (4.0-10.5)
[2017-02-13 16:06] LABS: DIFF IND NO
[2017-02-13 22:48] LABS: INR 1.1; PROTHROMBIN TIME (PATIENT) 11.4 SECONDS (10.0-11.7)
[2017-02-13 22:55] LABS: ALBUMIN SERUM 3.6 g/dL (3.5-5.0); BILIRUBIN,TOTAL 0.5 mg/dL (0.2-2.0); BUN/CREATININE RATIO 21.66; CALCIUM SERUM 8.9 mg/dL (8.4-10.2); CREATININE SERUM 0.6 mg/dL (0.6-1.4); GLOM FILT RATE Estimated 107.8 mL/min (>60); POTASSIUM 3.3 mmol/L (3.5-5.1); PROTEIN TOTAL SERUM 7.1 g/dL (6.0-8.3)
[2017-02-14 05:25] LABS: PROTHROMBIN TIME (PATIENT) 11.1 SECONDS (10.0-11.7)
[2017-02-14 05:26] LABS: HEMATOCRIT 33.5 % (35.0-45.0); HEMOGLOBIN 10.9 gm/dL (12.0-16.0); MEAN CELL VOLUME 80.9 FL (83-96); MEAN CORPUSCULAR HEMOGLOBIN 26.4 PG (28-34); MEAN CORPUSCULAR HGB CONC 32.6 g/dL (30-36); MEAN PLATELET VOLUME 8.5 FL (6.5-11.5); RED BLOOD COUNT 4.14 X10e (3.90-5.30); RED CELL DISTRIBUTION WIDTH 14.3 % (11.0-15.5); WHITE BLOOD COUNT 7.2 X10e3 (4.0-10.5)
[2017-02-14 05:53] LABS: ALBUMIN SERUM 3.6 g/dL (3.5-5.0); BILIRUBIN,TOTAL 0.6 mg/dL (0.2-2.0); CREATININE SERUM 0.6 mg/dL (0.6-1.4); GLOM FILT RATE Estimated 107.8 mL/min (>60); MAGNESIUM 1.8 mg/dL (1.6-3.0); POTASSIUM 3.7 mmol/L (3.5-5.1); PROTEIN TOTAL SERUM 7.1 g/dL (6.0-8.3)
[2017-02-15 01:23] LABS: URINE APPEARANCE CLOUDY; URINE BILIRUBIN NEG (NEG); URINE BLOOD 2+ (NEG); URINE COLOR YELLOW; URINE GLUCOSE >1000 MG/DL (NEG); URINE KETONE 3+ (NEG); URINE LEUKOCYTE ESTERASE NEG (NEG); URINE NITRATE NEG (NEG); URINE PROTEIN TRACE (NEG); URINE SPECIFIC GRAVITY 1.035 (1.003-1.035)
[2017-02-15 01:26] LABS: CULTURE INDICATED? YES; URINE BACTERIA AUWI NEG (NEGATIVE); URINE SQUAMOUS EPITHELIAL CELL OCC /[HPF]
[2017-02-15 04:10] LABS: BASOPHIL% 0.2 % (0-2.5); EOSINOPHIL% 0.1 % (0.0-7.0); HEMATOCRIT 32.4 % (35.0-45.0); HEMOGLOBIN 10.7 gm/dL (12.0-16.0); LYMPHOCYTE# 1.2 X10e3 (1.0-3.5); LYMPHOCYTE% 8.4 % (17.0-45.0); MEAN CELL VOLUME 79.8 FL (83-96); MEAN CORPUSCULAR HEMOGLOBIN 26.3 PG (28-34); MONOCYTE# 0.7 X10e3 (0-1.0); NEUTROPHIL# 12.5 X10e3 (1.5-7.1); NEUTROPHIL% 86.3 % (40-75); PLATELET COUNT 287 X10e3 (140-420); RED BLOOD COUNT 4.06 X10e (3.90-5.30); RED CELL DISTRIBUTION WIDTH 15.7 % (11.0-15.5)
[2017-02-15 04:19] LABS: DIFF IND NO; WHITE BLOOD COUNT 14.5 X10e3 (4.0-10.5)
[2017-02-15 08:02] LABS: ALBUMIN SERUM 3.2 g/dL (3.5-5.0); BILIRUBIN,TOTAL 0.8 mg/dL (0.2-2.0); BUN/CREATININE RATIO 12.5; CALCIUM SERUM 8.2 mg/dL (8.4-10.2); CREATININE SERUM 0.8 mg/dL (0.6-1.4); GLOM FILT RATE Estimated 87.3 mL/min (>60); POTASSIUM 4.1 mmol/L (3.5-5.1); PROTEIN TOTAL SERUM 6.7 g/dL (6.0-8.3)
[2017-02-15 10:59] LABS: %MB 1.6 % (0.0-4.0); MB 6.5 ng/ml
[2017-02-16 03:56] LABS: HEMATOCRIT 28.6 % (35.0-45.0); HEMOGLOBIN 9.1 gm/dL (12.0-16.0); MEAN CELL VOLUME 81.2 FL (83-96); MEAN CORPUSCULAR HEMOGLOBIN 25.7 PG (28-34); MEAN CORPUSCULAR HGB CONC 31.7 g/dL (30-36); MEAN PLATELET VOLUME 8.7 FL (6.5-11.5); RED BLOOD COUNT 3.52 X10e (3.90-5.30); RED CELL DISTRIBUTION WIDTH 14.5 % (11.0-15.5); WHITE BLOOD COUNT 12.3 X10e3 (4.0-10.5)
[2017-02-16 04:11] LABS: ALBUMIN SERUM 3.1 g/dL (3.5-5.0); BILIRUBIN,TOTAL 0.5 mg/dL (0.2-2.0); CALCIUM SERUM 8.3 mg/dL (8.4-10.2); CREATININE SERUM 0.8 mg/dL (0.6-1.4); GLOM FILT RATE Estimated 87.3 mL/min (>60); POTASSIUM 4.2 mmol/L (3.5-5.1); PROTEIN TOTAL SERUM 6.4 g/dL (6.0-8.3)
[2017-02-17 03:06] LABS: HEMATOCRIT 25.9 % (35.0-45.0); HEMOGLOBIN 8.3 gm/dL (12.0-16.0); MEAN CELL VOLUME 81.3 FL (83-96); MEAN PLATELET VOLUME 8.6 FL (6.5-11.5); RED BLOOD COUNT 3.19 X10e (3.90-5.30); RED CELL DISTRIBUTION WIDTH 15.1 % (11.0-15.5); WHITE BLOOD COUNT 11.1 X10e3 (4.0-10.5)
[2017-02-17 06:17] LABS: BLOOD UREA NITROGEN <5 mg/dL (9-23); BUN/CREATININE RATIO 8.33; CALCIUM SERUM 8.3 mg/dL (8.4-10.2); CARBON DIOXIDE 25 mmol/L (22-31); CHLORIDE 105 mmol/L (100-111); CREATININE SERUM 0.6 mg/dL (0.6-1.4); GLOM FILT RATE Estimated 107.8 mL/min (>60); GLUCOSE FASTING 141 mg/dL (70-110); POTASSIUM 3.7 mmol/L (3.5-5.1); SODIUM 137 mmol/L (135-145)
[2017-02-18 08:27] LABS: HEMATOCRIT 26.8 % (35.0-45.0); HEMOGLOBIN 8.6 gm/dL (12.0-16.0); MEAN CELL VOLUME 80.8 FL (83-96); MEAN CORPUSCULAR HEMOGLOBIN 25.9 PG (28-34); MEAN CORPUSCULAR HGB CONC 32.1 g/dL (30-36); MEAN PLATELET VOLUME 7.8 FL (6.5-11.5); RED BLOOD COUNT 3.32 X10e (3.90-5.30); RED CELL DISTRIBUTION WIDTH 14.9 % (11.0-15.5); WHITE BLOOD COUNT 13.3 X10e3 (4.0-10.5)
[2017-02-18 09:38] LABS: CALCIUM SERUM 8.2 mg/dL (8.4-10.2); CARBON DIOXIDE 23 mmol/L (22-31); CHLORIDE 102 mmol/L (100-111); CREATININE SERUM 0.5 mg/dL (0.6-1.4); GLOM FILT RATE Estimated 114.5 mL/min (>60); GLUCOSE FASTING 146 mg/dL (70-110); POTASSIUM 3.3 mmol/L (3.5-5.1); SODIUM 136 mmol/L (135-145)
[2017-02-18 09:39] LABS: BLOOD UREA NITROGEN <5 mg/dL (9-23)
[2017-02-19 03:28] LABS: HEMATOCRIT 24.6 % (35.0-45.0); HEMOGLOBIN 7.9 gm/dL (12.0-16.0); MEAN CELL VOLUME 81.4 FL (83-96); MEAN CORPUSCULAR HEMOGLOBIN 26.2 PG (28-34); MEAN CORPUSCULAR HGB CONC 32.2 g/dL (30-36); RED BLOOD COUNT 3.02 X10e (3.90-5.30); RED CELL DISTRIBUTION WIDTH 14.8 % (11.0-15.5); WHITE BLOOD COUNT 13.3 X10e3 (4.0-10.5)
[2017-02-19 03:48] LABS: CALCIUM SERUM 8.3 mg/dL (8.4-10.2); CARBON DIOXIDE 30 mmol/L (22-31); CHLORIDE 102 mmol/L (100-111); CREATININE SERUM 0.8 mg/dL (0.6-1.4); GLOM FILT RATE Estimated 87.3 mL/min (>60); GLUCOSE FASTING 120 mg/dL (70-110); SODIUM 137 mmol/L (135-145)
[2017-02-19 03:54] LABS: CHOLESTEROL 162 mg/dL (0-200); HDL CHOLESTEROL 53 mg/dL (35-95); LDL CHOLESTEROL 93 mg/dL (-130); LDL/HDL RATIO 2 RATIO (0-4); TRIGLYCERIDES 79 mg/dL (10-160)
[2017-02-19 03:57] LABS: BLOOD UREA NITROGEN <5 mg/dL (9-23); BUN/CREATININE RATIO 6.25
[2017-03-21] MEDS ORDERED: HYDROCODON-ACE1 EA14 PO (10:12)
[2017-03-21] MEDS ORDERED: COREG6.25 MG PO (10:14)
== END 2017-02-20 15:05 | DRG 330 ==
LOC: COPS 09:35 → C3A PCU 14:55 → C4C 14:55 → COPS 17:17 → C3A PCU 17:17 → C4C 02-14 20:16
PROVIDERS: Family Medicine; Internal Medicine; Surgery
PROC: 0DBN8ZX Excision of Sigmoid Colon, Via Natural or Artificial Opening Endoscopic, Diagnostic (ICD-10-PCS; 2017-02-13)
PROC: 0DB68ZX Excision of Stomach, Via Natural or Artificial Opening Endoscopic, Diagnostic (ICD-10-PCS; principal; 2017-02-13 12:00)
PROC: 0DBN0ZZ Excision of Sigmoid Colon, Open Approach (ICD-10-PCS; 2017-02-14)
PROC: 0DNW0ZZ Release Peritoneum, Open Approach (ICD-10-PCS; 2017-02-14)
PROC: 0DQ80ZZ Repair Small Intestine, Open Approach (ICD-10-PCS; 2017-02-14)
PROC: 30233N1 Transfusion of Nonautologous Red Blood Cells into Peripheral Vein, Percutaneous Approach (ICD-10-PCS; 2017-02-19)
PROC: 05H433Z Insertion of Infusion Device into Left Innominate Vein, Percutaneous Approach (ICD-10-PCS; 2017-02-19)
PROC: B54NZZA Ultrasonography of Left Upper Extremity Veins, Guidance (ICD-10-PCS; 2017-02-19)
DX: C18.7 Malignant neoplasm of sigmoid colon (principal); C77.2 Secondary and unspecified malignant neoplasm of intra-abdominal lymph nodes; I69.351 Hemiplegia and hemiparesis following cerebral infarction affecting right dominant side; K56.7 Ileus, unspecified; K91.89 Other postprocedural complications and disorders of digestive system; D62 Acute posthemorrhagic anemia; K91.72 Accidental puncture and laceration of a digestive system organ or structure during other procedure; K66.0 Peritoneal adhesions (postprocedural) (postinfection); I10 Essential (primary) hypertension; K21.9 Gastro-esophageal reflux disease without esophagitis; I25.10 Atherosclerotic heart disease of native coronary artery without angina pectoris; G40.909 Epilepsy, unspecified, not intractable, without status epilepticus; K44.9 Diaphragmatic hernia without obstruction or gangrene; K29.70 Gastritis, unspecified, without bleeding; K64.8 Other hemorrhoids; Y83.9 Surgical procedure, unspecified as the cause of abnormal reaction of the patient, or of later complication, without mention of misadventure at the time of the procedure; G47.33 Obstructive sleep apnea (adult) (pediatric); E87.6 Hypokalemia
CPT/HCPCS: 71020; 74020; 80048; 80053; 80061; 81003; 82550; 82553; 83735; 84484; 85025; 85027; 85610; 86850; 86900; 86901; 86923; 87086; 88305; 88309; 88312; 88341; 88342; 93005; 94762; J0131; J1100; J1170; J1650; J2270; J2405; J2543; J2550; J2710; J2765; J2916; J3010; P9016

== ENCOUNTER → 2017-03-21 | Outpatient (CLI) | payer MEDICARE, OTHER ==
[~2017-03-21] VITALS: Ht 170.2 cm; Wt 82.0 kg
[~2017-03-21] MED LIST changes: +APRESOLINE10 M1 PO; +ARCTIC RELIE113.4 GM TOP; +ATIVAN0.5 MG PO; +AZELASTINE137 MCG/0.; +CARVEDILOL25 MG PO; +COREG6.25 MG PO; +CVS SENNA PLUS1 EACH PO; +CYANOCOBAL1000 MCG/M INJ; +CYMBALTA30 MG PO; +FAMOTIDINE20 M1 PO; +HYDROCODON-ACE1 EA14 PO; +K-DUR20 ME1 PO; +LEVETIRACETAM500 M1 PO; +LORTAB 5-325 M1 EACH PO; +ONDANSETRON HCL8 MG PO; +PANTOPRAZOLE SO20 MG PO; +ROBAFEN-DM SYR118 ML PO
--- NOTE | ~2017-03-21 | XA91 ---
[facility] A Service of [facility] & [facility] RADIOLOGY TEXT RESULTS PATIENT: BHAVYA PETE LOCATION: [facility] : 49 UNIT #: [id number] AGE: [address]: Danielle Whitfield MD SEX: F ORDER DR: [id number] [facility] [address] [place], [place] [address] [id number] MR#: [id number] Acc #: [id number] NAME: BHAVYA PETE : 1945 SEX: F STUDY DATE/TIME: 03/21/2017 10:30 UNIT: [facility] ROOM: STUDY DESCRIPTION: XA CVC Tunneled W Port Attending Physician: Danielle Whitfield M.D., Ph.D. Referring Physician: Danielle Whitfield M.D., Ph.D. Ordering Physician: Danielle Whitfield M.D., Ph.D. Primary Care Physician: Calvin Deng Jr., M.D. MEDICAL IMAGING REPORT This report is preliminary unless electronic signature is present EXAM Mediport placement on patient INDICATIONS Colon cancer. Patient requires IV access for chemotherapy. PROCEDURE The procedure was explained the patient and daughter, including risks, benefits and complications, potential for alternative forms of treatment. Informed consent was obtained prior to initiating the procedure. A formal time-out procedure was performed. Using all elements of maximal sterile barrier technique, including hand hygiene, caps, sterile gowns, gloves and masks, the right neck and chest were prepped as usual. Chlorhexidine 15 cc antisepsis and covered with a sterile sheet. The ultrasound probe covered with sterile probe cover and sterile gel was applied. Real-time ultrasound guidance was used to localize the right common jugular vein, which was found to be patent and compressible. Hard copy ultrasound image was obtained. After localization with 1% Xylocaine vein was punctured using a real-time ultrasound guidance and guidewire as advanced to the superior vena cava under fluoroscopic guidance. Micropuncture sheath was placed. J wire was advanced into the inferior vena cava under fluoroscopic guidance. Skin and subcutaneous tissues of the right anterolateral chest wall were assessed with buffered lidocaine and Isovue with epinephrine. A small skin incision was made. Port pocket was created using combination of blunt and sharp dissection. Port was seen within the pocket and secured using two 3-0 Vicryl sutures and was tunneled up through the right anterolateral chest wall to the insertion site at the neck. Sheath was advanced over the wire. Catheter was measured and trimmed and was advanced through the peel-away sheath and was positioned within the right atrium. Following placement of the catheter it flushed and aspirated easily and was secured within the pocket using 2 2-0 Vicryl sutures. Deep STS. [facility] A Service of [facility] RADIOLOGY TEXT RESULTS PATIENT: BHAVYA PETE LOCATION: [facility] : 47 UNIT #: [id number] AGE: [address]: Danielle Whitfield MD SEX: F ORDER DR: layer of the port pocket was closed using interrupted 3-0 Vicryl sutures, running 4-0 Monocryl sutures used to close the skin. Dermabond was applied to the wound to act as a dressing. Single 4-0 Monocryl suture was used to close the insertion site at the neck and Dermabond was applied to this wound. Total fluoroscopy time was 0.2 minutes. AK was 22 mGy. Patient did receive moderate sedation consisting of 3.5 mg of Versed, 75 mcg of fentanyl. I supervised the IVR nurse and monitored the patient's final signs for a total of 30 minutes of fpyl-st-vbym time. IMPRESSION Successful placement of right internal jugular vein Mediport which terminates within the right atrium. This catheter is ready for immediate use . Ultrasound and fluoroscopy were used during placement catheter and permanent images were saved. Dictated by... Sonja Finley M.D. THIS IS AN ELECTRONICALLY VERIFIED REPORT Sonja Finley M.D. at 03/22/2017 5:59 PM AFF/gz TD: 03/22/2017 10:56 JOB #: [id number] MEDICAL IMAGING REPORT Page 1 of 1 COPY
[2017-03-21 10:00] LABS: HEMATOCRIT 36.4 % (35.0-45.0); HEMOGLOBIN 11.9 gm/dL (12.0-16.0); MEAN CELL VOLUME 83.5 FL (83-96); MEAN CORPUSCULAR HEMOGLOBIN 27.4 PG (28-34); MEAN CORPUSCULAR HGB CONC 32.8 g/dL (30-36); MEAN PLATELET VOLUME 7.6 FL (6.5-11.5); RED BLOOD COUNT 4.36 X10e (3.90-5.30); RED CELL DISTRIBUTION WIDTH 17.3 % (11.0-15.5); WHITE BLOOD COUNT 5.6 X10e3 (4.0-10.5)
[2017-03-21 10:16] LABS: PROTHROMBIN TIME (PATIENT) 10.5 SECONDS (10.0-11.7)
== END | disposition home or self-care (01) ==
LOC: CIVR 09:08
PROVIDERS: Internal Medicine Hematology & Oncology
DX: C18.8 Malignant neoplasm of overlapping sites of colon (principal); C77.2 Secondary and unspecified malignant neoplasm of intra-abdominal lymph nodes; I10 Essential (primary) hypertension; I25.10 Atherosclerotic heart disease of native coronary artery without angina pectoris; G40.909 Epilepsy, unspecified, not intractable, without status epilepticus; G81.91 Hemiplegia, unspecified affecting right dominant side; Z79.82 Long term (current) use of aspirin; Z79.899 Other long term (current) drug therapy; Z90.710 Acquired absence of both cervix and uterus; Z98.890 Other specified postprocedural states
CPT/HCPCS: 36415; 76937; 77001; 85027; 85610; 85730; 99152; 99153; C1788; J0690; J1642; J2250; J3010